=== PATIENT | male | born 1970 | race Two or more races ===

== ENCOUNTER 2018-11-08 13:58 | Emergency (ER) | payer SELFPAY ==
[~2018-11-08] VITALS: Ht 172.7 cm; Wt 90.7 kg
[2018-11-08 14:30] VITALS: BP 128/79
--- NOTE | 2018-11-08 15:33 | PHYS DOC ---
Past Medical History Past Medical History: No Pertinent History Past Surgical History: No Surgical History Alcohol Use: None Drug Use: None Adult General Chief Complaint Chief Complaint: GENERALIZED BODY ACHES HPI HPI Patient is a 48 year old male who presents with the last couple weeks she's had a headache, runny nose, cough and then yesterday began having lower abdominal cramping with diarrhea. He states he did try to take Imodium, ibuprofen and TheraFlu. He is afebrile. He states he was having cold and hot chills. Denies dysuria. Review of Systems Review of Systems Constitutional: Denies fever or chills [] Eyes: Denies change in visual acuity, redness, or eye pain [] HENT: Denies nasal congestion or sore throat [] Respiratory: Denies cough or shortness of breath [] Cardiovascular: No additional information not addressed in HPI [] GI: Denies abdominal pain, nausea, vomiting, bloody stools or diarrhea [] : Denies dysuria or hematuria [] Musculoskeletal: Denies back pain or joint pain [] Integument: Denies rash or skin lesions [] Neurologic: Denies headache, focal weakness or sensory changes [] Endocrine: Denies polyuria or polydipsia [] All other systems were reviewed and found to be within normal limits, except as documented in this note. Current Medications Current Medications Current Medications Medications (Trade) Dose Ordered Sig/Tim Start Time Stop Time Status Last Admin Dose Admin Dicyclomine HCl (Bentyl) 10 mg 1X ONCE 11/08/18 15:45 11/08/18 15:46 11/08/18 15:34 10 MG Allergies Allergies Allergies Coded Allergies Type Severity Reaction Last Updated Verified No Known Drug Allergies 11/08/18 No Physical Exam Physical Exam Constitutional: Well developed, well nourished, no acute distress, non-toxic appearance. [] HENT: Normocephalic, atraumatic, bilateral external ears normal, oropharynx moist, no oral exudates, nose normal. [] Eyes: PERRLA, EOMI, conjunctiva normal, no discharge. [] Neck: Normal range of motion, no tenderness, supple, no stridor. [] Cardiovascular:Heart rate regular rhythm, no murmur [] Lungs & Thorax: Bilateral breath sounds clear to auscultation [] Abdomen: Bowel sounds normal, soft, no tenderness, no masses, no pulsatile masses. [] Skin: Warm, dry, no erythema, no rash. [] Back: No tenderness, no CVA tenderness. [] Extremities: No tenderness, no cyanosis, no clubbing, ROM intact, no edema. [] Neurologic: Alert and oriented X 3, normal motor function, normal sensory function, no focal deficits noted. [] Psychologic: Affect normal, judgement normal, mood normal. [] Current Patient Data Vital Signs Vital Signs Date Time Temp Pulse Resp B/P (MAP) Pulse Ox O2 Delivery O2 Flow Rate FiO2 11/08/18 14:30 98.1 103 20 128/79 (95) 98 Room Air 98.1 Lab Values Laboratory Tests Test 11/08/18 14:56 Influenza Type A Antigen Negative (NEGATIVE) Influenza Type B Antigen Negative (NEGATIVE) EKG EKG [] Radiology/Procedures Radiology/Procedures [] Course & Med Decision Making Course & Med Decision Making Patient is a 48 year old male who presents with the last couple weeks he's had a headache, runny nose, cough and then yesterday began having lower abdominal cramping with diarrhea. He states he did try to take Imodium, ibuprofen and TheraFlu. He is afebrile. He states he was having cold and hot chills. Denies dysuria. Alert and oriented. Skin pink warm and dry. Speaks in full clear sentences. Mucus membranes are moist. Abdomen is soft and nontender. Lungs are clear to auscultation lobes. Heart regular without murmur. Afebrile. Throat is red but there are no exudates. Bilateral ear. Tympanic are pearly white. Patient is given a shot of Bentyl in the ED. Patient is told to continue pushing fluids and taking [id number] medications. Patient likely has a viral gastritis. Patient denies dizziness, shortness of air, chest pain, nausea or vomiting. Dragon Disclaimer Dragon Disclaimer This electronic medical record was generated, in whole or in part, using a voice recognition dictation system. Departure Departure Impression: Primary Impression: Viral gastritis Additional Impressions: Diarrhea Upper respiratory infection Disposition: HOME, SELF-CARE Condition: STABLE Referrals: NO PCP (PCP) Patient Instructions: Diarrhea, Gastritis, Adult Additional Instructions: Follow-up with her primary care sooner as possible. Continue taking over-the- counter medications. Drink plenty of fluids. Scripts Azithromycin (AZITHROMYCIN TABLET) 250 Mg Tablet 1 PKG PO UD, #6 TAB Prov: TYSHAWN POOL APRN 11/08/18 Problem Qualifiers Additional Impressions: Diarrhea Diarrhea type: unspecified type Qualified Codes: R19.7 - Diarrhea, unspecified Upper respiratory infection URI type: unspecified URI Qualified Codes: J06.9 - Acute upper respiratory infection, unspecified TYSHAWN POOL APRN Nov 08, 2018 15:33
[2018-11-08 15:36] LABS: INFLUENZA A PATIENT NEGATIVE (NEGATIVE); INFLUENZA B PATIENT NEGATIVE (NEGATIVE)
[2018-11-08] MEDS ORDERED: DICYCLOMINE 20 MG/2 ML AMPUL. IM ONE (15:45)
[2018-11-08] MEDS ORDERED: AZIT250T6 PO (15:46)
== END 2018-11-08 15:55 | disposition home or self-care (01) ==
LOC: ER 13:58
DX: A08.4 Viral intestinal infection, unspecified (principal); J06.9 Acute upper respiratory infection, unspecified; R19.7 Diarrhea, unspecified
CPT/HCPCS: 87804; 96372; 99283; J0500

== ENCOUNTER 2019-08-08 20:52 | Emergency (ER) | payer SELFPAY ==
[~2019-08-08] VITALS: Ht 170.2 cm; Wt 90.7 kg
[~2019-08-08 20:52] MED LIST: AZIT250T6 PO
[2019-08-08 21:05] VITALS: BP 149/90
--- NOTE | 2019-08-08 21:27 | PHYS DOC ---
Past Medical History Past Medical History: No Pertinent History Past Surgical History: No Surgical History Alcohol Use: None Drug Use: None Adult General Chief Complaint Chief Complaint: PUNCTURE WOUND [facility] HPI Patient is a 48 year old right handed male who presents with complaining of injury to right hand. Patient states he was hit with a piece of wood that had an old nail and had a puncture wound to dorsal and proximal part of his hand both 5 hours ago with increasing pain and edema. Patient rated his pain 10 over 10. Patient denies fever and chills, focal neuro deficit, other injuries. Last tetanus immunization is unknown. Review of Systems Review of Systems Constitutional: Denies fever or chills [] Eyes: Denies change in visual acuity, redness, or eye pain [] HENT: Denies nasal congestion or sore throat [] Respiratory: Denies cough or shortness of breath [] Cardiovascular: No additional information not addressed in HPI [] GI: Denies abdominal pain, nausea, vomiting, bloody stools or diarrhea [] : Denies dysuria or hematuria [] Musculoskeletal: Denies back pain, reports joint pain [] Integument: Denies rash or skin lesions [] Neurologic: Denies headache, focal weakness or sensory changes [] Endocrine: Denies polyuria or polydipsia [] All other systems were reviewed and found to be within normal limits, except as documented in this note. Current Medications Current Medications Current Medications Medications (Trade) Dose Ordered Sig/[facility] Start Time Stop Time Status Last Admin Dose Admin Acetaminophen/ Hydrocodone Bitart (Lortab 5/325) 1 tab 1X ONCE 08/08/19 22:00 08/08/19 22:01 DC 08/08/19 21:58 1 TAB Ciprofloxacin (Cipro) 250 mg 1X ONCE 08/08/19 22:00 08/08/19 22:01 DC 08/08/19 21:56 250 MG Diphtheria/ Tetanus/Acell Pertussis (Boostrix) 0.5 ml ONCE ONCE 08/08/19 22:00 08/08/19 22:01 DC 08/08/19 22:09 0.5 ML Allergies Allergies Allergies Coded Allergies Type Severity Reaction Last Updated Verified No Known Drug Allergies 11/08/18 No Physical Exam Physical Exam Constitutional: Well developed, well nourished, mild distress, non-toxic appearance. [] HENT: Normocephalic, atraumatic. Eyes: PERRLA, EOMI, conjunctiva normal, no discharge. [] Neck: Normal range of motion, no tenderness, supple, no stridor. [] Cardiovascular:Heart rate regular rhythm, no murmur [] Lungs & Thorax: Bilateral breath sounds clear to auscultation [] Extremities: Right hand with a puncture wound in proximal of fourth metacarpal with moderate edema and tenderness without sign of infection, painful range of motion. Neurologic: Alert and oriented X 3, no focal deficits noted. [] Psychologic: Affect anxious, judgement normal, mood normal. [] Current Patient Data Vital Signs Vital Signs Date Time Temp Pulse Resp B/P (MAP) Pulse Ox O2 Delivery O2 Flow Rate FiO2 08/08/19 21:58 20 98 Room Air 08/08/19 21:05 98.4 92 149/90 (109) 98.4 EKG EKG [] Radiology/Procedures Radiology/Procedures [][facility] [address] [place] [address] IMAGING REPORT Signed PATIENT: VILMA ESCALANTE ACCOUNT: [id number] : 1970 LOCATION: ER AGE: 48 SEX: M EXAM STATUS: REG ER ORD. PHYSICIAN: RUBI HANNA MD REASON: puncture wound with a nail PROCEDURE: HAND RIGHT 3V Indication:Puncture wound with nail. TECHNIQUE: 3 views of right hand COMPARISON: None FINDINGS/ impression: No acute fracture or dislocation. No radiopaque foreign body. Electronically signed by: Black Conley DO (08/08/2019 9:40 PM) [facility] DICTATED and SIGNED BY: BLACK CONLEY DO DATE: 08/08/192139 Course & Med Decision Making Course & Med Decision Making Pertinent Imaging studies reviewed. (See chart for details) I've spoken with the patient and/or caregivers. I've explained the patient's condition, diagnosis and treatment plan based on information available to me at this time. I've answered the patient's and/or caregivers questions and addressed any concerns. The patient and/or caregivers have a good understanding the patient's diagnosis, condition and treatment plan as can be expected at this point. Vital signs have been stabilized. The patient's condition is stable for discharge from the emergency department. The patient will pursue further outpatient evaluation with her primary care provider or other designated consulting physician as outlined in the discharge instructions. Patient and/or caregivers are agreeable to this plan of care and follow-up instructions have been explained in detail. The patient and/or caregivers have received these instructions in written format and expressed understanding of these discharge instructions. The patient and her caregivers are aware that if any significant change in condition or worsening of symptoms should prompt him to immediately return to this of the closest emergency de partment. If an emergent department is not readily available I would encourage him to call 911. Dragon Disclaimer Dragon Disclaimer This electronic medical record was generated, in whole or in part, using a voice recognition dictation system. Departure Departure Impression: Primary Impression: Puncture wound of right hand Additional Impression: Contusion of hand Disposition: HOME, SELF-CARE (at 2256) Condition: IMPROVED Referrals: NO PCP (PCP) Patient Instructions: Hand Contusion, Puncture Wound Additional Instructions: Apply ice on your hand Follow-up with your primary care physician in 3-5 days Return to ER if not getting better Scripts Hydrocodone/Apap 5-325 (NORCO 5-325 TABLET) 1 Each Tablet 1 TAB PO PRN Q6HRS PRN for PAIN, #10 TAB 0 Refills Prov: RUBI HANNA MD 08/08/19 Ciprofloxacin Hcl (CIPRO) 250 Mg Tablet 1 TAB PO BID for infection, #14 TAB Prov: RUBI HANNA MD 08/08/19 Problem Qualifiers Primary Impression: Puncture wound of right hand Encounter type: initial encounter Foreign body presence: without foreign body Qualified Codes: S61.431A - Puncture wound without foreign body of right hand, initial encounter Additional Impression: Contusion of hand Encounter type: subsequent encounter Laterality: right Qualified Codes: S60.221D - Contusion of right hand, subsequent encounter RUBI HANNA MD Aug 08, 2019 21:27
--- NOTE | 2019-08-08 21:43 | RAD ---
Indication:Puncture wound with nail. TECHNIQUE: 3 views of right hand COMPARISON: None FINDINGS/ impression: No acute fracture or dislocation. No radiopaque foreign body. Electronically signed by: Black Lawson DO (08/08/2019 9:40 PM) [facility]
[2019-08-08] MEDS ORDERED: CIPROFLOXACIN HCL 250 MG TABLET. PO ONE (22:00)
[2019-08-08] MEDS ORDERED: HYDROcodone/APAP 5/325MG 1 TAB TABLET PO ONE (22:00)
[2019-08-08] MEDS ORDERED: DIPHTH,PERTUSS(ACELL),TET TOX 0.5 ML DISP.SYRIN. VAX IM ONE (22:00)
[2019-08-08] MEDS ORDERED: HYDR-3164 PO (22:59)
[2019-08-08] MEDS ORDERED: CIPR250T30 PO (22:59)
== END 2019-08-08 23:10 | disposition home or self-care (01) ==
LOC: ER 20:52
DX: S60.221A Contusion of right hand, initial encounter (principal); W22.8XXA Striking against or struck by other objects, initial encounter; Y93.89 Activity, other specified; Y92.89 Other specified places as the place of occurrence of the external cause; Y99.8 Other external cause status
CPT/HCPCS: 73130; 90471; 90715; 99284

== ENCOUNTER 2019-08-10 06:45 | Inpatient (IN) | payer SELFPAY ==
[~2019-08-10] VITALS: Ht 170.2 cm; Wt 90.0 kg
[2019-08-10] VITALS (9 sets, daily range): BP systolic 97–124; BP diastolic 56–76
[~2019-08-10 06:45] MED LIST changes: +CIPR250T30 PO; +HYDR-3164 PO
[2019-08-10] MEDS ORDERED: VANCOMYCIN 1GM IVPB FOR OMNI 250 ML IV ONE ×2 (07:15→09:00)
--- NOTE | 2019-08-10 07:24 | PHYS DOC ---
Past Medical History Past Medical History: No Pertinent History Past Surgical History: No Surgical History Alcohol Use: None Drug Use: None Adult General Chief Complaint Chief Complaint: HAND PROBLEM HPI HPI Jordan is a 48-year-old male who presents with complaint of right hand pain and swelling after an nail pierced the dorsal aspect of his hand. He states that it had been bleeding quite a bit with the initial injury and he placed a dressing over it and wrapped it. He states that he then came here and was seen by a provider and was prescribed antibiotics and pain medication. He states that despite taking the antibiotics, swelling and pain have worsened as well as redness and warmth to the area. Patient rates the pain as moderate and states that pain is worsened with flexion of his fingers. He states that pain is primarily in the dorsal aspect of his hand.[] Review of Systems Review of Systems Constitutional: Denies fever or chills [] Respiratory: Denies cough or shortness of breath [] Cardiovascular: No additional information not addressed in HPI [] Musculoskeletal: Positive right hand pain [] Integument: Denies rash or skin lesions [] All other systems were reviewed and found to be within normal limits, except as documented in this note. Current Medications Current Medications Current Medications Medications (Trade) Dose Ordered Sig/Tim Start Time Stop Time Status Last Admin Dose Admin Acetaminophen (Tylenol) 500 mg PRN Q6HRS PRN 08/10/19 08:45 Acetaminophen/ Hydrocodone Bitart (Lortab 5/325) 1 tab PRN Q6HRS PRN 08/10/19 08:45 Clonidine HCl (Catapres) 0.1 mg PRN Q1HR PRN 08/10/19 08:45 Fentanyl Citrate (Fentanyl 2ml Vial) 25 mcg PRN Q15MIN PRN 08/10/19 07:15 08/11/19 07:14 08/10/19 08:28 25 MCG Morphine Sulfate (Morphine Sulfate) 2 mg PRN Q2HR PRN 08/10/19 08:45 Ondansetron HCl (Zofran) 4 mg PRN Q6HRS PRN 08/10/19 08:45 Vancomycin HCl (Vanco Per Pharmacy) 1 each PRN DAILY PRN 08/10/19 08:45 UNV Allergies Allergies Allergies Coded Allergies Type Severity Reaction Last Updated Verified No Known Drug Allergies 11/08/18 No Physical Exam Physical Exam Constitutional: Well developed, well nourished, no acute distress, non-toxic appearance. [] HENT: Normocephalic, atraumatic, bilateral external ears normal, oropharynx moist, no oral exudates, nose normal. [] Eyes: PERRLA, EOMI, conjunctiva normal, no discharge. [] Neck: Normal range of motion, no tenderness, supple, no stridor. [] Cardiovascular: Regular rate and rhythm[] Lungs & Thorax: Bilateral breath sounds clear to auscultation [] Abdomen: Bowel sounds normal, soft. [] Skin: Warm, dry, no erythema, no rash. [] Extremities: Examination of right hand demonstrates moderate soft tissue swelling, redness and warmth, primarily to dorsal aspect of the hand with diffuse tenderness to palpation. Patient reports pain with flexion of fingers. [] Neurologic: Alert and oriented X 3, no focal deficits noted. [] Current Patient Data Vital Signs Vital Signs Date Time Temp Pulse Resp B/P (MAP) Pulse Ox O2 Delivery O2 Flow Rate FiO2 08/10/19 08:28 16 08/10/19 07:05 97.9 83 153/98 (116) 98 Room Air 97.9 Lab Values Laboratory Tests Test 08/10/19 07:37 White Blood Count 9.8 x10^3/uL (4.0-11.0) Red Blood Count 4.73 x10^6/uL (4.30-5.70) Hemoglobin 14.4 g/dL (13.0-17.5) Hematocrit 41.5 % (39.0-53.0) Mean Corpuscular Volume 88 fL (79-100) Mean Corpuscular Hemoglobin 31 pg (25-35) Mean Corpuscular Hemoglobin Concent 35 g/dL (31-37) Red Cell Distribution Width 13.5 % (11.5-14.5) Platelet Count 231 x10^3/uL (140-400) Neutrophils (%) (Auto) 68 % (31-73) Lymphocytes (%) (Auto) 21 % (24-48) L Monocytes (%) (Auto) 10 % (0-9) H Eosinophils (%) (Auto) 0 % (0-3) Basophils (%) (Auto) 1 % (0-3) Neutrophils # (Auto) 6.7 x10^3/uL (1.8-7.7) Lymphocytes # (Auto) 2.1 x10^3/uL (1.0-4.8) Monocytes # (Auto) 1.0 x10^3/uL (0.0-1.1) Eosinophils # (Auto) 0.0 x10^3/uL (0.0-0.7) Basophils # (Auto) 0.0 x10^3/uL (0.0-0.2) Sodium Level 139 mmol/L (136-145) Potassium Level 4.0 mmol/L (3.5-5.1) Chloride Level 105 mmol/L (98-107) Carbon Dioxide Level 31 mmol/L (21-32) Anion Gap 3 (6-14) L Blood Urea Nitrogen 15 mg/dL (8-26) Creatinine 1.1 mg/dL (0.7-1.3) Estimated GFR (Cockcroft-Gault) 72.1 BUN/Creatinine Ratio 14 (6-20) Glucose Level 104 mg/dL (70-99) H Calcium Level 9.6 mg/dL (8.5-10.1) Total Bilirubin 0.7 mg/dL (0.2-1.0) Aspartate Amino Transferase (AST) 27 U/L (15-37) Alanine Aminotransferase (ALT) 53 U/L (16-63) Alkaline Phosphatase 51 U/L (46-116) Total Protein 8.1 g/dL (6.4-8.2) Albumin 3.9 g/dL (3.4-5.0) Albumin/Globulin Ratio 0.9 (1.0-1.7) L Laboratory Tests 08/10/19 07:37 Laboratory Tests 08/10/19 07:37 EKG EKG [] Radiology/Procedures Radiology/Procedures [] Course & Med Decision Making Course & Med Decision Making Pertinent Labs and Imaging studies reviewed. (See chart for details) [] Dragon Disclaimer Dragon Disclaimer This electronic medical record was generated, in whole or in part, using a voice recognition dictation system. Departure Departure Impression: Primary Impression: Cellulitis of right hand Disposition: ADMITTED INPATIENT Admitting Physician: BERNARD (Dr. Chambers) Condition: GOOD Referrals: NO PCP (PCP) LAWRENCE ESQUIVEL Jr. DO Aug 10, 2019 07:24
[2019-08-10 07:50] LABS: BASO % 1 % (0-3); EOS % 0 % (0-3); HEMATOCRIT 41.5 % (39.0-53.0); HEMOGLOBIN 14.4 g/dL (13.0-17.5); LYMPH # 2.1 x10^3/uL (1.0-4.8); LYMPH % 21 % (24-48); MEAN CORPUSCULAR HEMOGLOBIN 31 pg (25-35); MEAN CORPUSCULAR HGB CONC 35 g/dL (31-37); MEAN CORPUSCULAR VOLUME 88 fL (79-100); MONO % 10 % (0-9); NEUT # 6.7 x10^3/uL (1.8-7.7); NEUT % 68 % (31-73); PLATELET COUNT 231 x10^3/uL (140-400); RED BLOOD COUNT 4.73 x10^6/uL (4.30-5.70); RED CELL DISTRIBUTION WIDTH 13.5 % (11.5-14.5); WHITE BLOOD COUNT 9.8 x10^3/uL (4.0-11.0)
[2019-08-10] MEDS: fentaNYL PF VIAL 100 MCG/2 ML VIAL IV PRN ×3 (07:56→10:15)
[2019-08-10 08:17] LABS: CALCIUM 9.6 mg/dL (8.5-10.1); CREATININE 1.1 mg/dL (0.7-1.3); GFR 72.1
[2019-08-10 08:23] LABS: ALBUMIN 3.9 g/dL (3.4-5.0); ALBUMIN/GLOBULIN RATIO 0.9 (1.0-1.7); TOTAL BILIRUBIN 0.7 mg/dL (0.2-1.0); TOTAL PROTEIN 8.1 g/dL (6.4-8.2)
[2019-08-10] MEDS ORDERED: MORPHINE SULFATE 2 MG/ML VIAL. IV PRN ×2 (08:45→10:45)
[2019-08-10] MEDS ORDERED: ONDANSETRON PF 4 MG/2 ML VIAL. IVP PRN (08:45)
[2019-08-10] MEDS ORDERED: ACETAMINOPHEN 500 MG TABLET PO PRN (08:45)
[2019-08-10] MEDS ORDERED: cloNIDine HCL 0.1 MG TABLET PO PRN (08:45)
[2019-08-10] MEDS ORDERED: MORPHINE SULFATE 4 MG/ML VIAL. IV PRN (09:00)
[2019-08-10] MEDS ORDERED: ONDANSETRON PF 4 MG/2 ML VIAL. IV PRN (09:00)
[2019-08-10] MEDS ORDERED: ACETAMINOPHEN 325 MG TABLET. PO PRN (09:00)
--- NOTE | 2019-08-10 09:39 | PDOC1 ---
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 Admitted for failed OP abx, NON DM, does not take any home meds pillow filler. NOn smoker, nonm drinker, no prev sxs. Got vanc at ER Past Medical History Cardiovascular: No pertinent hx Pulmonary: No pertinent hx GI: No pertinent hx Heme/Onc: No pertinent hx Hepatobiliary: No pertinent hx Psych: No pertinent hx Rheumatologic: No pertinent hx Infectious disease: No pertinent hx ENT: No pertinent hx Endocrine: No pertinent hx Dermatology: No pertinent hx Past Surgical History Past Surgical History: No pertinent history Family History Family History: No Significant Social History Smoke: No ALCOHOL: none Drugs: None Current Problem List Problem List Problems Medical Problems: (1) Cellulitis of right hand Status: Acute Current Medications Current Medications Current Medications Fentanyl Citrate (Fentanyl 2ml Vial) 25 mcg PRN Q15MIN PRN IV PAIN GREATER THAN 3/10 Last administered on 08/10/19at 08:28; Start 08/10/19 at 07:15; Stop 08/11/19 at 07:14 Vancomycin HCl 250 ml @ 250 mls/hr 1X ONCE IV Last administered on 08/10/19at 08:00; Start 08/10/19 at 07:15; Stop 08/10/19 at 08:14; Status DC Acetaminophen/ Hydrocodone Bitart (Lortab 5/325) 1 tab PRN Q6HRS PRN PO PAIN; Start 08/10/19 at 08:45 Morphine Sulfate (Morphine Sulfate) 2 mg PRN Q2HR PRN IV PAIN; Start 08/10/19 at 08:45 Acetaminophen (Tylenol) 500 mg PRN Q6HRS PRN PO MILD PAIN / TEMP; Start 08/10/19 at 08:45 Ondansetron HCl (Zofran) 4 mg PRN Q6HRS PRN IVP NAUSEA/VOMITING; Start 08/10/19 at 08:45 Vancomycin HCl (Vanco Per Pharmacy) 1 each PRN DAILY PRN MC SEE COMMENTS; Start 08/10/19 at 08:45; Status UNV Clonidine HCl (Catapres) 0.1 mg PRN Q1HR PRN PO HYPERTENSION; Start 08/10/19 at 08:45 Vancomycin HCl 250 ml @ 250 mls/hr 1X ONCE IV ; Start 08/10/19 at 09:00; Stop 08/10/19 at 09:59 Ondansetron HCl (Zofran) 4 mg PRN Q8HRS PRN IV NAUSEA/VOMITING; Start 08/10/19 at 09:00; Stop 08/11/19 at 08:59 Morphine Sulfate (Morphine Sulfate) 4 mg PRN Q2HR PRN IV PAIN; Start 08/10/19 at 09:00; Stop 08/11/19 at 08:59 Acetaminophen (Tylenol) 650 mg PRN Q4HRS PRN PO FEVER; Start 08/10/19 at 09:00; Stop 08/11/19 at 08:59 Active Scripts Active [place] 5-325 Tablet (Acetaminophen/Hydrocodone Bitart) 1 Each Tablet 1 Tab PO PRN Q6HRS PRN Cipro (Ciprofloxacin Hcl) 250 Mg Tablet 1 Tab PO BID Azithromycin Tablet (Azithromycin) 250 Mg Tablet 1 Pkg PO UD Allergies Allergies: Coded Allergies: No Known Drug Allergies (Unverified , 11/08/18) ROS Review of System as per HPI, the rest 14 pt neg Physical Exam General: Alert, Oriented X3, Cooperative, No acute distress HEENT: Atraumatic, PERRLA Lungs: Clear to auscultation, Normal air movement Heart: S1S2, RRR, no thrills, no rubs Cardiovascular: S1, S2 Breasts: Normal, Rt breast nml w/o mass, Lt breast nml w/o mass, Nipples normal Abdomen: Normal bowel sounds, Soft, No tenderness, No hepatosplenomegaly, No masses Male Genitals Exam: normal genitalia, normal prostate PELVIC: Nml ext genitalia Extremities: Other (RT hand markedly swoelln, cant nake a fist, tenderness and warm up to rt forarm near elbow, punctired dorsal site hand wound visible, no bleeding today) Neuro: Normal gait, Normal speech, Strength at 5/5 X4 ext, Normal tone, Sensation intact, Cranial nerves 3-12 NL, Reflexes 2+ Psych/Mental Status: Mental status NL, Mood NL Vitals Vitals Vital Signs Date Time Temp Pulse Resp B/P (MAP) Pulse Ox O2 Delivery O2 Flow Rate FiO2 08/10/19 08:28 16 08/10/19 07:05 97.9 83 153/98 (116) 98 Room Air 97.9 Labs Labs Laboratory Tests Test 08/10/19 07:37 White Blood Count 9.8 x10^3/uL (4.0-11.0) Red Blood Count 4.73 x10^6/uL (4.30-5.70) Hemoglobin 14.4 g/dL (13.0-17.5) Hematocrit 41.5 % (39.0-53.0) Mean Corpuscular Volume 88 fL (79-100) Mean Corpuscular Hemoglobin 31 pg (25-35) Mean Corpuscular Hemoglobin Concent 35 g/dL (31-37) Red Cell Distribution Width 13.5 % (11.5-14.5) Platelet Count 231 x10^3/uL (140-400) Neutrophils (%) (Auto) 68 % (31-73) Lymphocytes (%) (Auto) 21 % (24-48) Monocytes (%) (Auto) 10 % (0-9) Eosinophils (%) (Auto) 0 % (0-3) Basophils (%) (Auto) 1 % (0-3) Neutrophils # (Auto) 6.7 x10^3/uL (1.8-7.7) Lymphocytes # (Auto) 2.1 x10^3/uL (1.0-4.8) Monocytes # (Auto) 1.0 x10^3/uL (0.0-1.1) Eosinophils # (Auto) 0.0 x10^3/uL (0.0-0.7) Basophils # (Auto) 0.0 x10^3/uL (0.0-0.2) Sodium Level 139 mmol/L (136-145) Potassium Level 4.0 mmol/L (3.5-5.1) Chloride Level 105 mmol/L (98-107) Carbon Dioxide Level 31 mmol/L (21-32) Anion Gap 3 (6-14) Blood Urea Nitrogen 15 mg/dL (8-26) Creatinine 1.1 mg/dL (0.7-1.3) Estimated GFR (Cockcroft-Gault) 72.1 BUN/Creatinine Ratio 14 (6-20) Glucose Level 104 mg/dL (70-99) Calcium Level 9.6 mg/dL (8.5-10.1) Total Bilirubin 0.7 mg/dL (0.2-1.0) Aspartate Amino Transf (AST/SGOT) 27 U/L (15-37) Alanine Aminotransferase (ALT/SGPT) 53 U/L (16-63) Alkaline Phosphatase 51 U/L (46-116) Total Protein 8.1 g/dL (6.4-8.2) Albumin 3.9 g/dL (3.4-5.0) Albumin/Globulin Ratio 0.9 (1.0-1.7) Laboratory Tests Test 08/10/19 07:37 White Blood Count 9.8 x10^3/uL (4.0-11.0) Red Blood Count 4.73 x10^6/uL (4.30-5.70) Hemoglobin 14.4 g/dL (13.0-17.5) Hematocrit 41.5 % (39.0-53.0) Mean Corpuscular Volume 88 fL (79-100) Mean Corpuscular Hemoglobin 31 pg (25-35) Mean Corpuscular Hemoglobin Concent 35 g/dL (31-37) Red Cell Distribution Width 13.5 % (11.5-14.5) Platelet Count 231 x10^3/uL (140-400) Neutrophils (%) (Auto) 68 % (31-73) Lymphocytes (%) (Auto) 21 % (24-48) Monocytes (%) (Auto) 10 % (0-9) Eosinophils (%) (Auto) 0 % (0-3) Basophils (%) (Auto) 1 % (0-3) Neutrophils # (Auto) 6.7 x10^3/uL (1.8-7.7) Lymphocytes # (Auto) 2.1 x10^3/uL (1.0-4.8) Monocytes # (Auto) 1.0 x10^3/uL (0.0-1.1) Eosinophils # (Auto) 0.0 x10^3/uL (0.0-0.7) Basophils # (Auto) 0.0 x10^3/uL (0.0-0.2) Sodium Level 139 mmol/L (136-145) Potassium Level 4.0 mmol/L (3.5-5.1) Chloride Level 105 mmol/L (98-107) Carbon Dioxide Level 31 mmol/L (21-32) Anion Gap 3 (6-14) Blood Urea Nitrogen 15 mg/dL (8-26) Creatinine 1.1 mg/dL (0.7-1.3) Estimated GFR (Cockcroft-Gault) 72.1 BUN/Creatinine Ratio 14 (6-20) Glucose Level 104 mg/dL (70-99) Calcium Level 9.6 mg/dL (8.5-10.1) Total Bilirubin 0.7 mg/dL (0.2-1.0) Aspartate Amino Transf (AST/SGOT) 27 U/L (15-37) Alanine Aminotransferase (ALT/SGPT) 53 U/L (16-63) Alkaline Phosphatase 51 U/L (46-116) Total Protein 8.1 g/dL (6.4-8.2) Albumin 3.9 g/dL (3.4-5.0) Albumin/Globulin Ratio 0.9 (1.0-1.7) VTE Prophylaxis Ordered VTE Prophylaxis Devices: Yes VTE Pharmacological Prophylaxi: Yes Assessment/Plan Assessment/Plan PUNCTURED wound by nail - 08/08 - got TT, failed oP cipro NON DM Cellulitis, MARKED RT arm up to RT forearm, tight - r/o compartment PLAN: NPO till ortho CHeck CT arm add esr NO home meds tor reconcile I cont vanc per pharmacy Consult ID FULL CODE Seen at ER dw and pt and GIAN Pereira MD Aug 10, 2019 09:39
[2019-08-10] MEDS ORDERED: IV NORMAL SALINE 1000ML BAG 1,000 ML IV ONE (09:45)
[2019-08-10] MEDS ORDERED: LIDOCAINE 2% PF 5 ML VIAL. ONE (10:34)
[2019-08-10] MEDS ORDERED: fentaNYL PF VIAL 100 MCG/2 ML VIAL ONE (10:34)
[2019-08-10] MEDS ORDERED: PROPOFOL 20 ML IV ONE (10:34)
[2019-08-10] MEDS ORDERED: IV RINGERS,LACTATED 1000ML 1,000 ML IV SCH (10:35)
[2019-08-10] MEDS ORDERED: LIDOCAINE 1% PF 2 ML VIAL. ID PRN (10:45)
[2019-08-10] MEDS ORDERED: PROCHLORPERAZINE 10 MG/2 ML VIAL. IV PRN (10:45)
[2019-08-10] MEDS ORDERED: fentaNYL PF VIAL 100 MCG/2 ML VIAL IV PRN ×2 (10:45)
[2019-08-10] MEDS ORDERED: HYDROmorphone 2 MG/ML VIAL IV PRN (10:45)
--- NOTE | 2019-08-10 11:14 | PDOC ---
Infectious Disease Note Vital Sign Vital Signs Vital Signs Date Time Temp Pulse Resp B/P (MAP) Pulse Ox O2 Delivery O2 Flow Rate FiO2 08/10/19 10:15 16 08/10/19 10:10 85 138/87 (104) 98 Room Air 08/10/19 07:05 97.9 97.9 Labs Lab Laboratory Tests Test 08/10/19 07:37 White Blood Count 9.8 x10^3/uL (4.0-11.0) Red Blood Count 4.73 x10^6/uL (4.30-5.70) Hemoglobin 14.4 g/dL (13.0-17.5) Hematocrit 41.5 % (39.0-53.0) Mean Corpuscular Volume 88 fL (79-100) Mean Corpuscular Hemoglobin 31 pg (25-35) Mean Corpuscular Hemoglobin Concent 35 g/dL (31-37) Red Cell Distribution Width 13.5 % (11.5-14.5) Platelet Count 231 x10^3/uL (140-400) Neutrophils (%) (Auto) 68 % (31-73) Lymphocytes (%) (Auto) 21 % (24-48) Monocytes (%) (Auto) 10 % (0-9) Eosinophils (%) (Auto) 0 % (0-3) Basophils (%) (Auto) 1 % (0-3) Neutrophils # (Auto) 6.7 x10^3/uL (1.8-7.7) Lymphocytes # (Auto) 2.1 x10^3/uL (1.0-4.8) Monocytes # (Auto) 1.0 x10^3/uL (0.0-1.1) Eosinophils # (Auto) 0.0 x10^3/uL (0.0-0.7) Basophils # (Auto) 0.0 x10^3/uL (0.0-0.2) Erythrocyte Sedimentation Rate 23 (0-15) Sodium Level 139 mmol/L (136-145) Potassium Level 4.0 mmol/L (3.5-5.1) Chloride Level 105 mmol/L (98-107) Carbon Dioxide Level 31 mmol/L (21-32) Anion Gap 3 (6-14) Blood Urea Nitrogen 15 mg/dL (8-26) Creatinine 1.1 mg/dL (0.7-1.3) Estimated GFR (Cockcroft-Gault) 72.1 BUN/Creatinine Ratio 14 (6-20) Glucose Level 104 mg/dL (70-99) Calcium Level 9.6 mg/dL (8.5-10.1) Total Bilirubin 0.7 mg/dL (0.2-1.0) Aspartate Amino Transf (AST/SGOT) 27 U/L (15-37) Alanine Aminotransferase (ALT/SGPT) 53 U/L (16-63) Alkaline Phosphatase 51 U/L (46-116) Total Protein 8.1 g/dL (6.4-8.2) Albumin 3.9 g/dL (3.4-5.0) Albumin/Globulin Ratio 0.9 (1.0-1.7) Objective Assessment Cellulitis of right hand. -Failed OP cipro Puncture wound (nail) right hand. Prediabetes HLD Plan Plan of Care Tetanus shot 08/08 Continue vancomycin and add Zosyn Monitor renal function closely Seen by ortho w/ plans for surgery f/u cultures D/w D/w nursing Thank you [id number] Patient seen and examined. Chart reviewed in detail. Case discussed with STAGE TECHNICIAN. Agree with above plan. PAULO RICHARD APRN Aug 10, 2019 11:14 GOVIND BARNETT MD Aug 10, 2019 20:34
[2019-08-10] MEDS ORDERED: ONDANSETRON PF 4 MG/2 ML VIAL. ONE (11:37)
[2019-08-10] MEDS ORDERED: SEVOFLURANE 16 TO 30 MINUTES. IH ONE (11:37)
[2019-08-10] MEDS ORDERED: DEXAMETHASONE SOD PHOS 4 MG/ML VIAL ONE (11:37)
[2019-08-10 11:57] LABS: BF CLARITY CLOUDY; BF COLOR RED; BF SOURCE SYNOVIAL; BF WBC COUNT 6175 /cmm (Not Established)
[2019-08-10 11:58] LABS: BF MON % 24 %; BF OTHER % 6 %; BF PMN % 70 %; BF RBC COUNT 36000 /cmm (Not Established)
--- NOTE | 2019-08-10 13:14 | PDOC4 ---
Operative Note Operative Note Date of surgery: 08/10/2019 Preoperative diagnosis: Septic arthritis right wrist joint Postoperative diagnosis: Same Operative procedure: Right wrist arthrotomy irrigation debridement septic wrist joint Surgeon: Tiffany Anesthesia: Gen. Estimated blood loss: 10 mL Complications: None Operative indications: Please see my orthopedic consultation dated today for detail operative indications Operative text: Patient was identified procedure verified patient placed in the supine position on the operating table. After adequate amounts of general anesthesia were administered the right upper extremity was prepped and draped in standard sterile fashion with an upper arm tourniquet which was not inflated. After timeout was performed patient procedure identified and verified and incision was made at the 34 wrist arthroscopic portal site and at the 4-5 portal site wrist joint was entered without difficulty using a blunt Yamile clamp and purulent discharge was noted and suctioned away. A total of 1 L normal saline solution was irrigated throughout the wrist joint from first the medial and then lateral portals and free flow was obtained and clear fluid obtained following the irrigation wrist joint was then drained and incisions closed with 4-0 nylon suture sterile dressings were applied patient was returned recovery room in stable condition having tolerated procedure well BENJI PEPE MD Aug 10, 2019 13:14
[2019-08-10] MEDS: HYDROcodone/APAP 5/325MG 1 TAB TABLET PO PRN (14:02)
[2019-08-10] MEDS: PIPERACILLIN/TAZOBACTAM 3.375 GM in IV NORMAL SALINE 50ML 50 ML IV SCH ×2 (14:02→19:15)
[2019-08-10] MEDS: VANCOMYCIN PER PHARMACY MC PRN (14:29)
--- NOTE | 2019-08-10 14:30 | NUR ---
Pharmacy Vancomycin Dosing Note S:Consulted to monitor and dose vancomycin started 08/10/19. O:VILMA ESCALANTE is a 48 year old M with Cellulitis SEPTIC ARTHRITIS . Height: 5 feet, 7 inches Weight: 90.170764 kg [place] Body Weight: 66.10 Adjusted Body Weight: 75.94 Dosing Weight: Actual Other Antibiotics: ZOSYN LABS: Last BUN: 15 Last Creatinine: 1.1 Creatinine Clearance: 90 mL/min Last WBC: 9.8 Last Procalcitonin: Tmax (past 24 hours): 98.0 Microbiology: I/O: Drug Levels: Last level: on at Last dose given 08/10/19 at 1121 Vancomycin Dosing: Loading Dose: 2000 mg x1 Dosing Weight: Actual Target Trough: 15-20 A: Based on: Body weight and renal function P: 1. After 2gm loading dose, start Vancomycin 1500 mg IV q12h 2. Follow up Trough level on 08/11/19 at 2300 3. Pharmacy will continue to monitor, follow and adjust therapy as needed. STEPHANIE CHASE RPH, 08/10/19 1430
--- NOTE | 2019-08-10 15:32 | CONS ---
DATE OF CONSULTATION: 08/10/2019 REASON FOR CONSULTATION: Right wrist pain and swelling. REQUESTING PHYSICIAN: Dr. Tatum and Dr. Chambers. HISTORY OF PRESENT ILLNESS: The patient is a 48-year-old male who speaks reasonable Italian and complains of right wrist pain and swelling, particularly over the back of his hand. After he had an injury from a nail several days ago that poked into the dorsal aspect of his hand over the roughly over the wrist joint. He said it initially bled quite a bit and he placed a dressing over it and wrapped that, he came to the Emergency Department later apparently was provided a tetanus and some antibiotics and pain medication, but he notes that despite taking antibiotics swelling and pain have worsened and it is more red, warm and very painful, difficult to move his wrist and fully flex his fingers due to the swelling. PAST MEDICAL HISTORY/SURGICAL HISTORY: He denies any past medical history or surgical history. SOCIAL HISTORY: No tobacco, alcohol or drug use. He is accompanied by his family. He has been taking Tylenol for pain. ALLERGIES: He has no known drug allergies. REVIEW OF SYSTEMS: Denies any fever, chills, chest pain or shortness of breath. No additional joint pain aside from the hand and wrist swelling on the right and tightness where he can flex the hand very well. Denies any other skin problems, joint pain, or other constitutional symptoms. No chest pain, shortness of breath, respiratory or urinary tract symptoms. PHYSICAL EXAMINATION: GENERAL: Pleasant, cooperative male. VITAL SIGNS: Temperature 97.9, pulse 83, respirations 16, blood pressure 153/98 and 98% saturation on room air. EXTREMITIES: On examination of the right hand, he has significant swelling over the dorsum of the hand. No specific point tenderness over the extensor mechanism, although his wrist does have an effusion and is very tense. He cannot flex his fingers fully. Flexor profundus superficialis function; however, is intact and he has no tenderness on palpation over the flexor tendon sheaths. LABORATORY DATA: White count is 9.8. IMAGING DATA: X-rays show no bony abnormality. He has normal examination contralateral hand and wrist, bilateral shoulder and elbow as well. IMPRESSION: Right wrist puncture wound and possible septic arthritis, right wrist. TREATMENT PLAN: I went over with him my rationale for aspirating the wrist. His wrist was aspirated for about 3-4 mL of very cloudy appearing blood-tinged fluid. This was sent off for cell count, aerobic and anaerobic cultures and Gram stain. I told him that based on his symptoms. He did not really have an infected wrist joint and I recommend surgical treatment of that because of the rapid damage that can occur with joint involvement. All his questions were answered and he does wish to proceed with surgical evaluation and treatment, which will occur urgently today as he has had nothing to eat or drink since last night. BENJI PEPE MD DR: NISSA/shiv JOB#: [id number] / [id number]
--- NOTE | 2019-08-10 17:52 | CONS ---
DATE OF CONSULTATION: 08/10/2019 REFERRING PHYSICIAN: Sandra Chambers MD REASON FOR CONSULTATION: Severe cellulitis. HISTORY OF PRESENT ILLNESS: This patient is a 48-year-old male who on 08/08 was working at home when a wooden board, with a nail sticking out, fell, puncturing his right hand. He says he wrapped his hand to stop the bleeding. A few hours later, he arrived to the ER with complaints of pain and swelling. X-ray at the time showed no acute fracture, dislocation or radiopaque foreign body. He was given a tetanus shot, prescription for Cipro and released home. Over the following 2 days, he says his hand became increasingly painful, swollen with limited range of motion despite antibiotics. He is now on vancomycin. He was evaluated by Ortho with plans for surgery soon. PAST MEDICAL HISTORY: Hyperlipidemia and prediabetes. PAST SURGICAL HISTORY: Denies previous surgeries. FAMILY HISTORY: Diabetes. SOCIAL HISTORY: He is . 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 He does not smoke. ALLERGIES: No known drug allergies. MEDICATIONS: Vancomycin, clonidine, fentanyl, Lortab, Dilaudid, morphine, ondansetron, prochlorperazine, and Tylenol. Previously on outpatient ciprofloxacin. REVIEW OF SYSTEMS: The patient denies fevers, chills, sweats or body aches. Denies shortness of air, cough or chest discomfort. Denies nausea, vomiting or diarrhea. Denies rash. Other review of systems negative. PHYSICAL EXAMINATION: VITAL SIGNS: Temperature is 97.9, blood pressure 138/87, heart rate 85, respiratory rate 16, and pulse oximetry 98% on room air. BMI is 31. GENERAL: The patient is sitting in a chair, alert and well appearing. HEENT: Pupils are equally round and reactive. Oropharynx pink and moist. NECK: Supple. LUNGS: Clear to auscultation. CARDIAC: S1 and S2. ABDOMEN: Soft and nontender. EXTREMITIES: Unremarkable except right hand and fingers are edematous and warm with limited car blocker. He has a puncture leena dorsal aspect of the wrist area. Radial pulse is strong and capillary reflex brisk. SKIN: Warm to touch. No signs of rash. NEUROLOGIC: Alert, answering questions appropriately. LABORATORY DATA: Today's WBC 9.8, hemoglobin 14.4, and platelets 231,000. Sed rate 23. Creatinine 1.1 and BUN 15. Electrolytes are unremarkable. Glucose 104. Total bilirubin 0.7, AST 27, and ALT 53. X-ray of the hand per HPI. IMPRESSION: 1. Cellulitis of right hand. 2. Puncture wound, right hand, with nail. 3. Prediabetes. 4. Hyperlipidemia. PLAN: The patient already was given a tetanus shot on the . Continue the vancomycin and add Zosyn. Monitor renal function closely. He was seen by Ortho with plans for surgery today. Cultures requested. Discussed with at bedside. Thank you Dr. Chambers for asking us to participate in this patient's care. Should you have further questions or concerns, please call. GOVIND BARNETT MD DR: ALEC/nts JOB#: [id number] / [id number]
[2019-08-10] MEDS: VANCOMYCIN 1.5 GM in IV NORMAL SALINE 500ML BAG 500 ML IV SCH (23:07)
[2019-08-11] MEDS: PIPERACILLIN/TAZOBACTAM 3.375 GM in IV NORMAL SALINE 50ML 50 ML IV SCH ×4 (01:38→17:27)
[2019-08-11 02:53] VITALS: BP 110/66
[2019-08-11 06:08] LABS: BASO % 0 % (0-3); EOS % 0 % (0-3); HEMATOCRIT 36.4 % (39.0-53.0); HEMOGLOBIN 12.5 g/dL (13.0-17.5); LYMPH # 1.1 x10^3/uL (1.0-4.8); LYMPH % 12 % (24-48); MEAN CORPUSCULAR HEMOGLOBIN 30 pg (25-35); MEAN CORPUSCULAR HGB CONC 34 g/dL (31-37); MEAN CORPUSCULAR VOLUME 88 fL (79-100); MONO # 0.8 x10^3/uL (0.0-1.1); MONO % 9 % (0-9); NEUT # 7.1 x10^3/uL (1.8-7.7); NEUT % 78 % (31-73); PLATELET COUNT 218 x10^3/uL (140-400); RED BLOOD COUNT 4.12 x10^6/uL (4.30-5.70); RED CELL DISTRIBUTION WIDTH 13.2 % (11.5-14.5); WHITE BLOOD COUNT 9.1 x10^3/uL (4.0-11.0)
[2019-08-11 06:20] LABS: CALCIUM 8.5 mg/dL (8.5-10.1); GFR 80.4; POTASSIUM 4.3 mmol/L (3.5-5.1)
[2019-08-11 07:00] VITALS: BP 118/67
[2019-08-11 07:15] LABS: PROTHROMBIN TIME PATIENT 13.2 SEC (11.7-14.0)
--- NOTE | 2019-08-11 08:46 | PDOC ---
PROGRESS NOTES Chief Complaint Chief Complaint Right wrist cellulitis and abscess, septic arthritis Obesity Prediabetes HLD Anemia History of Present Illness History of Present Illness Mr Hayward is a 48-year-old male who on 08/08 was working at home when a wooden board, with a nail sticking out, fell, puncturing his right hand. He says he wrapped his hand to stop the bleeding. A few hours later, he arrived to the ER with complaints of pain and swelling. X-ray at the time showed no acute fracture, dislocation or radiopaque foreign body. He was given a tetanus shot, prescription for Cipro and released home. Over the following 2 days, he says his hand became increasingly painful, swollen with limited range of motion despite antibiotics. He is now on vancomycin. Seen by ID and Orthopedic surgery in consultation. now s/p Right wrist arthrotomy irrigation debridement septic wrist joint on 08/10/19. He is tolerating PO pain medications well, still on IV antibiotics. No numbness or tingling in hand, it is slightly swollen. No diarrhea, no SOB or CP. He is asking to discharge soon. Plan: Will d/w ID antibiotic regimen Add bowel regimen for opioid induced constipation Vitals Vitals Vital Signs Date Time Temp Pulse Resp B/P (MAP) Pulse Ox O2 Delivery O2 Flow Rate FiO2 08/11/19 07:00 97.7 63 18 118/67 (84) 96 Room Air 97.7 08/10/19 12:04 10 Physical Exam General: Alert, Oriented X3, Cooperative, No acute distress Heart: Regular rate, Normal S1, Normal S2 Lungs: Clear Abdomen: Normal bowel sounds, Soft, No tenderness, No hepatosplenomegaly, No masses Extremities: Other (RT hand markedly swoelln, cant nake a fist, tenderness and warm up to rt forarm near elbow, punctired dorsal site hand wound visible, no bleeding today) Labs LABS Laboratory Tests Test 08/10/19 10:25 08/11/19 05:30 Body Fluid Source Synovial Body Fluid Volume Body Fluid Color Red Body Fluid Clarity Cloudy Body Fluid Nucleated Cells 6175 /cmm (Not Established) Body Fluid Mononuclear WBCs (%) 24 % Body Fluid Polymorphonuclear Cells 70 % Body Fluid Total RBCs Counted 31857 /cmm (Not Body Fluid Other Cells (%) 6 % White Blood Count 9.1 x10^3/uL (4.0-11.0) Red Blood Count 4.12 x10^6/uL (4.30-5.70) Hemoglobin 12.5 g/dL (13.0-17.5) Hematocrit 36.4 % (39.0-53.0) Mean Corpuscular Volume 88 fL (79-100) Mean Corpuscular Hemoglobin 30 pg (25-35) Mean Corpuscular Hemoglobin Concent 34 g/dL (31-37) Red Cell Distribution Width 13.2 % (11.5-14.5) Platelet Count 218 x10^3/uL (140-400) Neutrophils (%) (Auto) 78 % (31-73) Lymphocytes (%) (Auto) 12 % (24-48) Monocytes (%) (Auto) 9 % (0-9) Eosinophils (%) (Auto) 0 % (0-3) Basophils (%) (Auto) 0 % (0-3) Neutrophils # (Auto) 7.1 x10^3/uL (1.8-7.7) Lymphocytes # (Auto) 1.1 x10^3/uL (1.0-4.8) Monocytes # (Auto) 0.8 x10^3/uL (0.0-1.1) Eosinophils # (Auto) 0.0 x10^3/uL (0.0-0.7) Basophils # (Auto) 0.0 x10^3/uL (0.0-0.2) Prothrombin Time 13.2 SEC (11.7-14.0) Prothromb Time International Ratio 1.0 (0.8-1.1) Sodium Level 144 mmol/L (136-145) Potassium Level 4.3 mmol/L (3.5-5.1) Chloride Level 107 mmol/L (98-107) Carbon Dioxide Level 27 mmol/L (21-32) Anion Gap 10 (6-14) Blood Urea Nitrogen 16 mg/dL (8-26) Creatinine 1.0 mg/dL (0.7-1.3) Estimated GFR (Cockcroft-Gault) 80.4 Glucose Level 107 mg/dL (70-99) Calcium Level 8.5 mg/dL (8.5-10.1) Assessment and Plan Assessmemt and Plan Problems Medical Problems: (1) Cellulitis of right hand Status: Acute Comment Review of Relevant I have reviewed the following items leena (where applicable) has been applied. Labs Laboratory Tests Test 08/10/19 07:37 08/10/19 10:25 08/11/19 05:30 White Blood Count 9.8 x10^3/uL (4.0-11.0) 9.1 x10^3/uL (4.0-11.0) Red Blood Count 4.73 x10^6/uL (4.30-5.70) 4.12 x10^6/uL (4.30-5.70) Hemoglobin 14.4 g/dL (13.0-17.5) 12.5 g/dL (13.0-17.5) Hematocrit 41.5 % (39.0-53.0) 36.4 % (39.0-53.0) Mean Corpuscular Volume 88 fL (79-100) 88 fL (79-100) Mean Corpuscular Hemoglobin 31 pg (25-35) 30 pg (25-35) Mean Corpuscular Hemoglobin Concent 35 g/dL (31-37) 34 g/dL (31-37) Red Cell Distribution Width 13.5 % (11.5-14.5) 13.2 % (11.5-14.5) Platelet Count 231 x10^3/uL (140-400) 218 x10^3/uL (140-400) Neutrophils (%) (Auto) 68 % (31-73) 78 % (31-73) Lymphocytes (%) (Auto) 21 % (24-48) 12 % (24-48) Monocytes (%) (Auto) 10 % (0-9) 9 % (0-9) Eosinophils (%) (Auto) 0 % (0-3) 0 % (0-3) Basophils (%) (Auto) 1 % (0-3) 0 % (0-3) Neutrophils # (Auto) 6.7 x10^3/uL (1.8-7.7) 7.1 x10^3/uL (1.8-7.7) Lymphocytes # (Auto) 2.1 x10^3/uL (1.0-4.8) 1.1 x10^3/uL (1.0-4.8) Monocytes # (Auto) 1.0 x10^3/uL (0.0-1.1) 0.8 x10^3/uL (0.0-1.1) Eosinophils # (Auto) 0.0 x10^3/uL (0.0-0.7) 0.0 x10^3/uL (0.0-0.7) Basophils # (Auto) 0.0 x10^3/uL (0.0-0.2) 0.0 x10^3/uL (0.0-0.2) Erythrocyte Sedimentation Rate 23 (0-15) Sodium Level 139 mmol/L (136-145) 144 mmol/L (136-145) Potassium Level 4.0 mmol/L (3.5-5.1) 4.3 mmol/L (3.5-5.1) Chloride Level 105 mmol/L (98-107) 107 mmol/L (98-107) Carbon Dioxide Level 31 mmol/L (21-32) 27 mmol/L (21-32) Anion Gap 3 (6-14) 10 (6-14) Blood Urea Nitrogen 15 mg/dL (8-26) 16 mg/dL (8-26) Creatinine 1.1 mg/dL (0.7-1.3) 1.0 mg/dL (0.7-1.3) Estimated GFR (Cockcroft-Gault) 72.1 80.4 BUN/Creatinine Ratio 14 (6-20) Glucose Level 104 mg/dL (70-99) 107 mg/dL (70-99) Calcium Level 9.6 mg/dL (8.5-10.1) 8.5 mg/dL (8.5-10.1) Total Bilirubin 0.7 mg/dL (0.2-1.0) Aspartate Amino Transf (AST/SGOT) 27 U/L (15-37) Alanine Aminotransferase (ALT/SGPT) 53 U/L (16-63) Alkaline Phosphatase 51 U/L (46-116) Total Protein 8.1 g/dL (6.4-8.2) Albumin 3.9 g/dL (3.4-5.0) Albumin/Globulin Ratio 0.9 (1.0-1.7) Body Fluid Source Synovial Body Fluid Volume Body Fluid Color Red Body Fluid Clarity Cloudy Body Fluid Nucleated Cells 6175 /cmm (Not Established) Body Fluid Mononuclear WBCs (%) 24 % Body Fluid Polymorphonuclear Cells 70 % Body Fluid Total RBCs Counted 14899 /cmm (Not Body Fluid Other Cells (%) 6 % Prothrombin Time 13.2 SEC (11.7-14.0) Prothromb Time International Ratio 1.0 (0.8-1.1) Laboratory Tests Test 08/10/19 10:25 08/11/19 05:30 Body Fluid Source Synovial Body Fluid Volume Body Fluid Color Red Body Fluid Clarity Cloudy Body Fluid Nucleated Cells 6175 /cmm (Not Established) Body Fluid Mononuclear WBCs (%) 24 % Body Fluid Polymorphonuclear Cells 70 % Body Fluid Total RBCs Counted 29140 /cmm (Not Body Fluid Other Cells (%) 6 % White Blood Count 9.1 x10^3/uL (4.0-11.0) Red Blood Count 4.12 x10^6/uL (4.30-5.70) Hemoglobin 12.5 g/dL (13.0-17.5) Hematocrit 36.4 % (39.0-53.0) Mean Corpuscular Volume 88 fL (79-100) Mean Corpuscular Hemoglobin 30 pg (25-35) Mean Corpuscular Hemoglobin Concent 34 g/dL (31-37) Red Cell Distribution Width 13.2 % (11.5-14.5) Platelet Count 218 x10^3/uL (140-400) Neutrophils (%) (Auto) 78 % (31-73) Lymphocytes (%) (Auto) 12 % (24-48) Monocytes (%) (Auto) 9 % (0-9) Eosinophils (%) (Auto) 0 % (0-3) Basophils (%) (Auto) 0 % (0-3) Neutrophils # (Auto) 7.1 x10^3/uL (1.8-7.7) Lymphocytes # (Auto) 1.1 x10^3/uL (1.0-4.8) Monocytes # (Auto) 0.8 x10^3/uL (0.0-1.1) Eosinophils # (Auto) 0.0 x10^3/uL (0.0-0.7) Basophils # (Auto) 0.0 x10^3/uL (0.0-0.2) Prothrombin Time 13.2 SEC (11.7-14.0) Prothromb Time International Ratio 1.0 (0.8-1.1) Sodium Level 144 mmol/L (136-145) Potassium Level 4.3 mmol/L (3.5-5.1) Chloride Level 107 mmol/L (98-107) Carbon Dioxide Level 27 mmol/L (21-32) Anion Gap 10 (6-14) Blood Urea Nitrogen 16 mg/dL (8-26) Creatinine 1.0 mg/dL (0.7-1.3) Estimated GFR (Cockcroft-Gault) 80.4 Glucose Level 107 mg/dL (70-99) Calcium Level 8.5 mg/dL (8.5-10.1) Microbiology 08/10/19 Blood Culture - Preliminary, Resulted NO GROWTH AFTER 1 DAY Medications Current Medications Fentanyl Citrate (Fentanyl 2ml Vial) 25 mcg PRN Q15MIN PRN IV PAIN GREATER THAN 3/10 Last administered on 08/10/19at 10:15; Start 08/10/19 at 07:15; Stop 08/11/19 at 07:14; Status DC Vancomycin HCl 250 ml @ 250 mls/hr 1X ONCE IV Last administered on 08/10/19at 08:00; Start 08/10/19 at 07:15; Stop 08/10/19 at 08:14; Status DC Acetaminophen/ Hydrocodone Bitart (Lortab 5/325) 1 tab PRN Q6HRS PRN PO MODERATE-SEVERE PAIN Last administered on 08/10/19at 14:02; Start 08/10/19 at 08:45 Morphine Sulfate (Morphine Sulfate) 2 mg PRN Q2HR PRN IV PAIN; Start 08/10/19 at 08:45 Acetaminophen (Tylenol) 500 mg PRN Q6HRS PRN PO MILD PAIN / TEMP; Start 08/10/19 at 08:45 Ondansetron HCl (Zofran) 4 mg PRN Q6HRS PRN IVP NAUSEA/VOMITING; Start 08/10/19 at 08:45 Vancomycin HCl (Vanco Per Pharmacy) 1 each PRN DAILY PRN MC SEE COMMENTS Last administered on 08/10/19at 14:29; Start 08/10/19 at 08:45 Clonidine HCl (Catapres) 0.1 mg PRN Q1HR PRN PO HYPERTENSION; Start 08/10/19 at 08:45 Vancomycin HCl 250 ml @ 250 mls/hr 1X ONCE IV Last administered on 08/10/19at 11:21; Start 08/10/19 at 09:00; Stop 08/10/19 at 09:59; Status DC Ondansetron HCl (Zofran) 4 mg PRN Q8HRS PRN IV NAUSEA/VOMITING; Start 08/10/19 at 09:00; Stop 08/11/19 at 08:59 Morphine Sulfate (Morphine Sulfate) 4 mg PRN Q2HR PRN IV PAIN; Start 08/10/19 at 09:00; Stop 08/11/19 at 08:59 Acetaminophen (Tylenol) 650 mg PRN Q4HRS PRN PO FEVER; Start 08/10/19 at 09:00; Stop 08/11/19 at 08:59 Sodium Chloride 1,000 ml @ 100 mls/hr 1X ONCE IV Last administered on 08/10/19at 14:05; Start 08/10/19 at 09:45; Stop 08/10/19 at 19:44; Status DC Propofol 20 ml @ As Directed STK-MED ONCE IV ; Start 08/10/19 at 10:34; Stop 08/10/19 at 10:34; Status DC Lidocaine HCl (Lidocaine Pf 2% Vial) 5 ml STK-MED ONCE .ROUTE ; Start 08/10/19 at 10:34; Stop 08/10/19 at 10:34; Status DC Fentanyl Citrate (Fentanyl 2ml Vial) 100 mcg STK-MED ONCE .ROUTE ; Start 08/10/19 at 10:34; Stop 08/10/19 at 10:34; Status DC Fentanyl Citrate (Fentanyl 2ml Vial) 25 mcg PRN Q5MIN PRN IV MILD PAIN 1-3; Start 08/10/19 at 10:45; Stop 08/11/19 at 10:44 Fentanyl Citrate (Fentanyl 2ml Vial) 50 mcg PRN Q5MIN PRN IV MODERATE TO SEVERE PAIN; Start 08/10/19 at 10:45; Stop 08/11/19 at 10:44 Morphine Sulfate (Morphine Sulfate) 1 mg PRN Q10MIN PRN IV SEVERE PAIN 7-10; Start 08/10/19 at 10:45; Stop 08/11/19 at 10:44 Ringer's Solution 1,000 ml @ 30 mls/hr Q24H IV Last administered on 08/10/19at 11:24; Start 08/10/19 at 10:35; Stop 08/10/19 at 22:34; Status DC Lidocaine HCl (Xylocaine-Mpf 1% 2ml Vial) 2 ml PRN 1X PRN ID PRIOR TO IV START; Start 08/10/19 at 10:45; Stop 08/11/19 at 10:44 Hydromorphone HCl (Dilaudid) 0.5 mg PRN Q10MIN PRN IV SEV PAIN, Second choice; Start 08/10/19 at 10:45; Stop 08/11/19 at 10:44 Prochlorperazine Edisylate (Compazine) 5 mg PACU PRN PRN IV NAUSEA, MRX1; Start 08/10/19 at 10:45; Stop 08/11/19 at 10:44 Piperacillin Sod/ Tazobactam Sod 3.375 gm/Sodium Chloride 50 ml @ 100 mls/hr Q6HRS IV Last administered on 08/11/19at 05:46; Start 08/10/19 at 12:00 Ondansetron HCl (Zofran) 4 mg STK-MED ONCE .ROUTE ; Start 08/10/19 at 11:37; Stop 08/10/19 at 11:38; Status DC Dexamethasone Sodium Phosphate (Decadron) 4 mg STK-MED ONCE .ROUTE ; Start 08/10/19 at 11:37; Stop 08/10/19 at 11:38; Status DC Sevoflurane (Ultane) 15 ml STK-MED ONCE IH ; Start 08/10/19 at 11:37; Stop 08/10/19 at 11:38; Status DC Vancomycin HCl 1.5 gm/Sodium Chloride 500 ml @ 250 mls/hr Q12H IV Last administered on 08/10/19at 23:07; Start 08/10/19 at 23:30 Vancomycin HCl (Vancomycin Trough Level) 1 each 1X ONCE MC ; Start 08/11/19 at 23:00; Stop 08/11/19 at 23:01 Active Scripts Active [place] 5-325 Tablet (Acetaminophen/Hydrocodone Bitart) 1 Each Tablet 1 Tab PO PRN Q6HRS PRN Cipro (Ciprofloxacin Hcl) 250 Mg Tablet 1 Tab PO BID Azithromycin Tablet (Azithromycin) 250 Mg Tablet 1 Pkg PO UD Vitals/I & O Vital Sign - Last 24 Hours 08/10/19 08/10/19 08/10/19 08/10/19 10:10 10:15 11:15 12:04 Temp 97.0 97.0 Pulse 85 76 Resp 16 16 20 B/P (MAP) 138/87 (104) 131/78 Pulse Ox 98 98 O2 Delivery Room Air Room Air Mask O2 Flow Rate 10 08/10/19 08/10/19 08/10/19 08/10/19 12:04 12:19 12:34 12:41 Temp 97.0 97.0 Pulse 78 79 80 79 Resp 22 22 20 20 B/P (MAP) 123/61 130/78 135/80 116/74 Pulse Ox 97 95 92 93 O2 Delivery Simple Mask Room Air Room Air Room Air O2 Flow Rate 10 08/10/19 08/10/19 08/10/19 08/10/19 12:55 13:15 13:27 13:27 Temp 98.0 98.0 Pulse 78 76 Resp 20 18 B/P (MAP) 127/75 119/76 (90) Pulse Ox 93 94 O2 Delivery Room Air Room Air Room Air Room Air 08/10/19 08/10/19 08/10/19 08/10/19 13:28 13:30 13:45 14:00 Pulse 80 86 Resp 18 18 B/P (MAP) 118/75 (89) 122/76 (91) Pulse Ox 93 94 O2 Delivery Room Air Room Air Room Air Room Air 08/10/19 08/10/19 08/10/19 08/10/19 14:00 14:02 14:30 15:00 Pulse 85 90 89 Resp 18 18 18 B/P (MAP) 119/71 (87) 118/74 (89) 124/74 (91) Pulse Ox 95 95 95 O2 Delivery Room Air Room Air Room Air Room Air 08/10/19 08/10/19 08/10/19 08/10/19 15:00 16:00 19:00 20:22 Temp 97.5 99.0 97.5 99.0 Pulse 90 84 Resp 18 16 B/P (MAP) 118/65 (82) 99/63 (75) Pulse Ox 95 93 O2 Delivery Room Air Room Air Room Air Room Air 08/10/19 08/11/19 08/11/19 23:00 02:53 07:00 Temp 98.2 98.0 97.7 98.2 98.0 97.7 Pulse 79 70 63 Resp 16 16 18 B/P (MAP) 97/56 (70) 110/66 (81) 118/67 (84) Pulse Ox 94 95 96 O2 Delivery Room Air Room Air Room Air Intake and Output 08/10/19 08/10/19 08/11/19 15:00 23:00 07:00 Intake Total 900 ml 240 ml 1600 ml Output Total 5 ml 0 ml Balance 895 ml 240 ml 1600 ml WILMER PIERCE MD Aug 11, 2019 08:46
[2019-08-11] MEDS: HYDROcodone/APAP 5/325MG 1 TAB TABLET PO PRN ×3 (09:25→21:18)
--- NOTE | 2019-08-11 10:17 | PDOC ---
ORTHO PROGRESS NOTES Subjective Patient resting comfortably in bed, with mild complaint of pain. Post-op Day: 1 Procedure Right Wrist Arthrotomy with irrigation and debridement of septic wrist joint. Vitals Vital Signs Date Time Temp Pulse Resp B/P (MAP) Pulse Ox O2 Delivery O2 Flow Rate FiO2 08/11/19 09:25 18 08/11/19 08:00 Room Air 08/11/19 07:00 97.7 63 118/67 (84) 96 97.7 08/10/19 12:04 10 Labs Laboratory Tests Test 08/10/19 07:37 08/10/19 10:25 08/11/19 05:30 White Blood Count 9.8 x10^3/uL (4.0-11.0) 9.1 x10^3/uL (4.0-11.0) Red Blood Count 4.73 x10^6/uL (4.30-5.70) 4.12 x10^6/uL (4.30-5.70) Hemoglobin 14.4 g/dL (13.0-17.5) 12.5 g/dL (13.0-17.5) Hematocrit 41.5 % (39.0-53.0) 36.4 % (39.0-53.0) Mean Corpuscular Volume 88 fL (79-100) 88 fL (79-100) Mean Corpuscular Hemoglobin 31 pg (25-35) 30 pg (25-35) Mean Corpuscular Hemoglobin Concent 35 g/dL (31-37) 34 g/dL (31-37) Red Cell Distribution Width 13.5 % (11.5-14.5) 13.2 % (11.5-14.5) Platelet Count 231 x10^3/uL (140-400) 218 x10^3/uL (140-400) Neutrophils (%) (Auto) 68 % (31-73) 78 % (31-73) Lymphocytes (%) (Auto) 21 % (24-48) 12 % (24-48) Monocytes (%) (Auto) 10 % (0-9) 9 % (0-9) Eosinophils (%) (Auto) 0 % (0-3) 0 % (0-3) Basophils (%) (Auto) 1 % (0-3) 0 % (0-3) Neutrophils # (Auto) 6.7 x10^3/uL (1.8-7.7) 7.1 x10^3/uL (1.8-7.7) Lymphocytes # (Auto) 2.1 x10^3/uL (1.0-4.8) 1.1 x10^3/uL (1.0-4.8) Monocytes # (Auto) 1.0 x10^3/uL (0.0-1.1) 0.8 x10^3/uL (0.0-1.1) Eosinophils # (Auto) 0.0 x10^3/uL (0.0-0.7) 0.0 x10^3/uL (0.0-0.7) Basophils # (Auto) 0.0 x10^3/uL (0.0-0.2) 0.0 x10^3/uL (0.0-0.2) Erythrocyte Sedimentation Rate 23 (0-15) Sodium Level 139 mmol/L (136-145) 144 mmol/L (136-145) Potassium Level 4.0 mmol/L (3.5-5.1) 4.3 mmol/L (3.5-5.1) Chloride Level 105 mmol/L (98-107) 107 mmol/L (98-107) Carbon Dioxide Level 31 mmol/L (21-32) 27 mmol/L (21-32) Anion Gap 3 (6-14) 10 (6-14) Blood Urea Nitrogen 15 mg/dL (8-26) 16 mg/dL (8-26) Creatinine 1.1 mg/dL (0.7-1.3) 1.0 mg/dL (0.7-1.3) Estimated GFR (Cockcroft-Gault) 72.1 80.4 BUN/Creatinine Ratio 14 (6-20) Glucose Level 104 mg/dL (70-99) 107 mg/dL (70-99) Calcium Level 9.6 mg/dL (8.5-10.1) 8.5 mg/dL (8.5-10.1) Total Bilirubin 0.7 mg/dL (0.2-1.0) Aspartate Amino Transf (AST/SGOT) 27 U/L (15-37) Alanine Aminotransferase (ALT/SGPT) 53 U/L (16-63) Alkaline Phosphatase 51 U/L (46-116) Total Protein 8.1 g/dL (6.4-8.2) Albumin 3.9 g/dL (3.4-5.0) Albumin/Globulin Ratio 0.9 (1.0-1.7) Body Fluid Source Synovial Body Fluid Volume Body Fluid Color Red Body Fluid Clarity Cloudy Body Fluid Nucleated Cells 6175 /cmm (Not Established) Body Fluid Mononuclear WBCs (%) 24 % Body Fluid Polymorphonuclear Cells 70 % Body Fluid Total RBCs Counted 92150 /cmm (Not Body Fluid Other Cells (%) 6 % Prothrombin Time 13.2 SEC (11.7-14.0) Prothromb Time International Ratio 1.0 (0.8-1.1) Laboratory Tests Test 08/10/19 10:25 08/11/19 05:30 Body Fluid Source Synovial Body Fluid Volume Body Fluid Color Red Body Fluid Clarity Cloudy Body Fluid Nucleated Cells 6175 /cmm (Not Established) Body Fluid Mononuclear WBCs (%) 24 % Body Fluid Polymorphonuclear Cells 70 % Body Fluid Total RBCs Counted 37922 /cmm (Not Body Fluid Other Cells (%) 6 % White Blood Count 9.1 x10^3/uL (4.0-11.0) Red Blood Count 4.12 x10^6/uL (4.30-5.70) Hemoglobin 12.5 g/dL (13.0-17.5) Hematocrit 36.4 % (39.0-53.0) Mean Corpuscular Volume 88 fL (79-100) Mean Corpuscular Hemoglobin 30 pg (25-35) Mean Corpuscular Hemoglobin Concent 34 g/dL (31-37) Red Cell Distribution Width 13.2 % (11.5-14.5) Platelet Count 218 x10^3/uL (140-400) Neutrophils (%) (Auto) 78 % (31-73) Lymphocytes (%) (Auto) 12 % (24-48) Monocytes (%) (Auto) 9 % (0-9) Eosinophils (%) (Auto) 0 % (0-3) Basophils (%) (Auto) 0 % (0-3) Neutrophils # (Auto) 7.1 x10^3/uL (1.8-7.7) Lymphocytes # (Auto) 1.1 x10^3/uL (1.0-4.8) Monocytes # (Auto) 0.8 x10^3/uL (0.0-1.1) Eosinophils # (Auto) 0.0 x10^3/uL (0.0-0.7) Basophils # (Auto) 0.0 x10^3/uL (0.0-0.2) Prothrombin Time 13.2 SEC (11.7-14.0) Prothromb Time International Ratio 1.0 (0.8-1.1) Sodium Level 144 mmol/L (136-145) Potassium Level 4.3 mmol/L (3.5-5.1) Chloride Level 107 mmol/L (98-107) Carbon Dioxide Level 27 mmol/L (21-32) Anion Gap 10 (6-14) Blood Urea Nitrogen 16 mg/dL (8-26) Creatinine 1.0 mg/dL (0.7-1.3) Estimated GFR (Cockcroft-Gault) 80.4 Glucose Level 107 mg/dL (70-99) Calcium Level 8.5 mg/dL (8.5-10.1) Notes awake and alert Assessment and Plan S/P right wrist I&D septic wrist joint dressing dry and intact moving fingers well motor and sensation intact distally ok to d/c per ortho standpoint when pain controlled and if able to take PO antibiotics F/u in clinic in approx 2 weeks, call for CARA Cameron APRN Aug 11, 2019 10:17
[2019-08-11] MEDS: POLYETHYLENE GLYCOL 3350 17 GM PACKET. PO SCH (10:46)
[2019-08-11] MEDS: VANCOMYCIN 1.5 GM in IV NORMAL SALINE 500ML BAG 500 ML IV SCH (10:47)
[2019-08-11 11:00] VITALS: BP 124/64
--- NOTE | 2019-08-11 11:24 | PDOC ---
Infectious Disease Note Subjective Subjective s/p right wrist I&D septic wrist joint c/o mild pain wants to go home No F/C/N/V/D ROS ROS per HPI Vital Sign Vital Signs Vital Signs Date Time Temp Pulse Resp B/P (MAP) Pulse Ox O2 Delivery O2 Flow Rate FiO2 08/11/19 10:25 18 Room Air 08/11/19 07:00 97.7 63 118/67 (84) 96 97.7 08/10/19 12:04 10 Physical Exam PHYSICAL EXAM GENERAL: Propped up in bed, alert, NAD HEENT: Pupils are equally round and reactive. Oropharynx pink and moist. NECK: Supple. LUNGS: Clear to auscultation. CARDIAC: S1 and S2. ABDOMEN: Soft and nontender. EXTREMITIES: Post-op dressing right hand dry,+ ice pack. Fingers are warm, less swollen. SKIN: Warm to touch. No signs of rash. NEUROLOGIC: Alert, answering questions appropriately. Labs Lab Laboratory Tests Test 08/11/19 05:30 White Blood Count 9.1 x10^3/uL (4.0-11.0) Red Blood Count 4.12 x10^6/uL (4.30-5.70) Hemoglobin 12.5 g/dL (13.0-17.5) Hematocrit 36.4 % (39.0-53.0) Mean Corpuscular Volume 88 fL (79-100) Mean Corpuscular Hemoglobin 30 pg (25-35) Mean Corpuscular Hemoglobin Concent 34 g/dL (31-37) Red Cell Distribution Width 13.2 % (11.5-14.5) Platelet Count 218 x10^3/uL (140-400) Neutrophils (%) (Auto) 78 % (31-73) Lymphocytes (%) (Auto) 12 % (24-48) Monocytes (%) (Auto) 9 % (0-9) Eosinophils (%) (Auto) 0 % (0-3) Basophils (%) (Auto) 0 % (0-3) Neutrophils # (Auto) 7.1 x10^3/uL (1.8-7.7) Lymphocytes # (Auto) 1.1 x10^3/uL (1.0-4.8) Monocytes # (Auto) 0.8 x10^3/uL (0.0-1.1) Eosinophils # (Auto) 0.0 x10^3/uL (0.0-0.7) Basophils # (Auto) 0.0 x10^3/uL (0.0-0.2) Prothrombin Time 13.2 SEC (11.7-14.0) Prothromb Time International Ratio 1.0 (0.8-1.1) Sodium Level 144 mmol/L (136-145) Potassium Level 4.3 mmol/L (3.5-5.1) Chloride Level 107 mmol/L (98-107) Carbon Dioxide Level 27 mmol/L (21-32) Anion Gap 10 (6-14) Blood Urea Nitrogen 16 mg/dL (8-26) Creatinine 1.0 mg/dL (0.7-1.3) Estimated GFR (Cockcroft-Gault) 80.4 Glucose Level 107 mg/dL (70-99) Calcium Level 8.5 mg/dL (8.5-10.1) Micro Microbiology 08/10/19 Blood Culture - Preliminary, Resulted NO GROWTH AFTER 1 DAY Objective Assessment Cellulitis of right hand/septic wrist - s/p joint aspiration: cloudy, WBC > 6000, 08/10 - s/p wrist arthrotomy, I and D, 08/10 - Failed OP cipro Puncture wound (nail) right hand. Prediabetes HLD Plan Plan of Care Tetanus shot 08/08 Continue vancomycin and Zosyn Monitor renal function closely f/u cultures D/w Dr. Allen last evening regarding findings D/w family Attending Co-Sign Attending Co-Sign The patient was seen and interviewed as well as examined at the bedside. The chart was reviewed. The case was discussed. Agree with the plan of care. PAULO RICHARD APRN Aug 11, 2019 11:24 HEIDE ROBERTSON MD Aug 11, 2019 16:31
[2019-08-11] MEDS: VANCOMYCIN PER PHARMACY MC PRN (13:05)
[2019-08-11 14:47] VITALS: BP 122/62
[2019-08-11 19:00] VITALS: BP 119/77
[2019-08-11] MEDS: PSYLLIUM HUSK (SUGAR FREE) 1 PKT PACKET PO SCH (21:18)
[2019-08-11] MEDS: LACTOBACILLUS RHAMNOSUS GG 1 CAPSULE. PO SCH (21:18)
[2019-08-11 23:00] VITALS: BP 106/64
[2019-08-11 23:43] LABS: VANC TR 8.4 mcg/mL (10.0-20.0)
[2019-08-12] MEDS: PIPERACILLIN/TAZOBACTAM 3.375 GM in IV NORMAL SALINE 50ML 50 ML IV SCH ×5 (00:30→23:41)
[2019-08-12] MEDS: VANCOMYCIN PER PHARMACY MC PRN ×2 (00:50→15:57)
--- NOTE | 2019-08-12 00:50 | NUR ---
Pharmacy Vancomycin Dosing Note S:Consulted to monitor and dose vancomycin started 08/10/19. O:VILMA ESCALANTE is a 48 year old M with Cellulitis SEPTIC ARTHRITIS . Height: 5 feet, 7 inches Weight: 89.873395 kg [place] Body Weight: 66.10 Adjusted Body Weight: 75.94 Dosing Weight: Actual Other Antibiotics: ZOSYN LABS: Last BUN: 16 Last Creatinine: 1 Creatinine Clearance: 90 mL/min Last WBC: 9.8 Last Procalcitonin: Tmax (past 24 hours): 98.0 Microbiology: 08/11 08/10 BCX NGTD I/O: NO UO/VOIDS RECORDED BUT SCR NORMAL Drug Levels: Last Trough level: 8.4 on 08/11/19 at 2300 Last dose given 08/11/19 at 1047 Vancomycin Dosing: Loading Dose: 2000 mg x1 Dosing Weight: Actual Target Trough: 15-20 A: Based on: TROUGH P: 1. Begin Vancomycin 1500 mg IV q8h 2. Follow up Trough level on 08/12/19 at 2330 3. Pharmacy will continue to monitor, follow and adjust therapy as needed. ALONA MCCORMICK RPH, 08/12/19 0050 Signed: 08/12/19 at 0050 by ALONA MCCORMICK RPH PHA
[2019-08-12] MEDS: VANCOMYCIN 1.5 GM in IV NORMAL SALINE 500ML BAG 500 ML IV SCH ×3 (01:15→15:50)
[2019-08-12 03:00] VITALS: BP 110/65
[2019-08-12 04:20] LABS: PROTHROMBIN TIME PATIENT 12.9 SEC (11.7-14.0)
[2019-08-12 07:00] VITALS: BP 122/79
[2019-08-12] MEDS: LACTOBACILLUS RHAMNOSUS GG 1 CAPSULE. PO SCH ×2 (07:46→21:07)
[2019-08-12] MEDS: HYDROcodone/APAP 5/325MG 1 TAB TABLET PO PRN ×2 (07:46→13:59)
[2019-08-12] MEDS: POLYETHYLENE GLYCOL 3350 17 GM PACKET. PO SCH (07:47)
--- NOTE | 2019-08-12 08:39 | PDOC ---
PROGRESS NOTES Chief Complaint Chief Complaint Right wrist cellulitis and abscess, septic arthritis - s/p joint aspiration with WBC > 6K on arthrotomy and I&D on 08/10/2019, failed outpatient therapy on oral antibiotics (cipro) Obesity Prediabetes HLD Anemia History of Present Illness History of Present Illness Mr Hayward is a 48-year-old male who on 08/08 was working at home when a wooden board, with a nail sticking out, fell, puncturing his right hand. He says he wrapped his hand to stop the bleeding. A few hours later, he arrived to the ER with complaints of pain and swelling. X-ray at the time showed no acute fracture, dislocation or radiopaque foreign body. He was given a tetanus shot, prescription for Cipro and released home. Over the following 2 days, he says his hand became increasingly painful, swollen with limited range of motion despite antibiotics. He is now on vancomycin. Seen by ID and Orthopedic surgery in consultation. now s/p Right wrist arthrotomy irrigation debridement septic wrist joint on 08/10/19. He is tolerating PO pain medications well, still on IV antibiotics. No numbness or tingling in hand, it is slightly swollen. No diarrhea, no SOB or CP. He is asking to discharge soon. Plan: Will d/w ID antibiotic regimen - will await cultures, based on his septic joint and outpatient failure we will need final cultures prior to d/c. Added bowel regimen for opioid induced constipation Vitals Vitals Vital Signs Date Time Temp Pulse Resp B/P (MAP) Pulse Ox O2 Delivery O2 Flow Rate FiO2 08/12/19 07:46 18 08/12/19 03:00 98.4 66 110/65 (80) 93 Room Air 98.4 08/11/19 22:18 10.0 Physical Exam Physical Exam GENERAL: Propped up in bed, alert, NAD HEENT: Pupils are equally round and reactive. Oropharynx pink and moist. NECK: Supple. LUNGS: Clear to auscultation. CARDIAC: S1 and S2. ABDOMEN: Soft and nontender. EXTREMITIES: Post-op dressing right hand dry,+ ice pack. Fingers are warm, less swollen. SKIN: Warm to touch. No signs of rash. NEUROLOGIC: Alert, answering questions appropriately. General: Alert, Oriented X3, Cooperative, No acute distress Heart: Regular rate, Normal S1, Normal S2 Lungs: Clear Abdomen: Normal bowel sounds, Soft, No tenderness, No hepatosplenomegaly, No masses Extremities: Other (RT hand markedly swoelln, cant nake a fist, tenderness and warm up to rt forarm near elbow, punctired dorsal site hand wound visible, no bleeding today) Labs LABS Laboratory Tests Test 08/11/19 23:05 08/12/19 03:14 Vancomycin Level Trough 8.4 mcg/mL (10.0-20.0) Vancomycin Last Dose Date 08/11/19 Vancomycin Last Dose Time 1130 Prothrombin Time 12.9 SEC (11.7-14.0) Prothromb Time International Ratio 1.0 (0.8-1.1) Assessment and Plan Assessmemt and Plan Problems Medical Problems: (1) Cellulitis of right hand Status: Acute Comment Review of Relevant I have reviewed the following items leena (where applicable) has been applied. Labs Laboratory Tests Test 08/10/19 10:25 08/11/19 05:30 08/11/19 23:05 08/12/19 03:14 Body Fluid Source Synovial Body Fluid Volume Body Fluid Color Red Body Fluid Clarity Cloudy Body Fluid Nucleated Cells 6175 /cmm (Not Established) Body Fluid Mononuclear WBCs (%) 24 % Body Fluid Polymorphonuclear Cells 70 % Body Fluid Total RBCs Counted 87258 /cmm (Not Body Fluid Other Cells (%) 6 % White Blood Count 9.1 x10^3/uL (4.0-11.0) Red Blood Count 4.12 x10^6/uL (4.30-5.70) Hemoglobin 12.5 g/dL (13.0-17.5) Hematocrit 36.4 % (39.0-53.0) Mean Corpuscular Volume 88 fL (79-100) Mean Corpuscular Hemoglobin 30 pg (25-35) Mean Corpuscular Hemoglobin Concent 34 g/dL (31-37) Red Cell Distribution Width 13.2 % (11.5-14.5) Platelet Count 218 x10^3/uL (140-400) Neutrophils (%) (Auto) 78 % (31-73) Lymphocytes (%) (Auto) 12 % (24-48) Monocytes (%) (Auto) 9 % (0-9) Eosinophils (%) (Auto) 0 % (0-3) Basophils (%) (Auto) 0 % (0-3) Neutrophils # (Auto) 7.1 x10^3/uL (1.8-7.7) Lymphocytes # (Auto) 1.1 x10^3/uL (1.0-4.8) Monocytes # (Auto) 0.8 x10^3/uL (0.0-1.1) Eosinophils # (Auto) 0.0 x10^3/uL (0.0-0.7) Basophils # (Auto) 0.0 x10^3/uL (0.0-0.2) Prothrombin Time 13.2 SEC (11.7-14.0) 12.9 SEC (11.7-14.0) Prothromb Time International Ratio 1.0 (0.8-1.1) 1.0 (0.8-1.1) Sodium Level 144 mmol/L (136-145) Potassium Level 4.3 mmol/L (3.5-5.1) Chloride Level 107 mmol/L (98-107) Carbon Dioxide Level 27 mmol/L (21-32) Anion Gap 10 (6-14) Blood Urea Nitrogen 16 mg/dL (8-26) Creatinine 1.0 mg/dL (0.7-1.3) Estimated GFR (Cockcroft-Gault) 80.4 Glucose Level 107 mg/dL (70-99) Calcium Level 8.5 mg/dL (8.5-10.1) Vancomycin Level Trough 8.4 mcg/mL (10.0-20.0) Vancomycin Last Dose Date 08/11/19 Vancomycin Last Dose Time 1130 Laboratory Tests Test 08/11/19 23:05 08/12/19 03:14 Vancomycin Level Trough 8.4 mcg/mL (10.0-20.0) Vancomycin Last Dose Date 08/11/19 Vancomycin Last Dose Time 1130 Prothrombin Time 12.9 SEC (11.7-14.0) Prothromb Time International Ratio 1.0 (0.8-1.1) Microbiology 08/10/19 Anaerobic/Aerobic Culture, Resulted Pending 08/10/19 Anaerobic Culture Result 1 (ANDREW), Resulted Pending 08/10/19 Aerobic Culture, Resulted Pending 08/10/19 Aerobic Culture Result 1 (ANDREW), Resulted Pending 08/10/19 Gram Stain - Final, Resulted 08/10/19 Gram Stain Result 1 (ANDREW) - Final, Resulted 08/10/19 Gram Stain Result 2 (ANDREW) - Final, Resulted 08/10/19 Blood Culture - Preliminary, Resulted NO GROWTH AFTER 2 DAYS Medications Current Medications Fentanyl Citrate (Fentanyl 2ml Vial) 25 mcg PRN Q15MIN PRN IV PAIN GREATER THAN 3/10 Last administered on 08/10/19at 10:15; Start 08/10/19 at 07:15; Stop at 07:14; Status DC Vancomycin HCl 250 ml @ 250 mls/hr 1X ONCE IV Last administered on 08/10/19at 08:00; Start 08/10/19 at 07:15; Stop 08/10/19 at 08:14; Status DC Acetaminophen/ Hydrocodone Bitart (Lortab 5/325) 1 tab PRN Q6HRS PRN PO MODERATE-SEVERE PAIN Last administered on 08/12/19at 07:46; Start 08/10/19 at 08:45 Morphine Sulfate (Morphine Sulfate) 2 mg PRN Q2HR PRN IV PAIN; Start 08/10/19 at 08:45; Stop 08/11/19 at 10:11; Status DC Acetaminophen (Tylenol) 500 mg PRN Q6HRS PRN PO MILD PAIN / TEMP; Start 08/10/19 at 08:45 Ondansetron HCl (Zofran) 4 mg PRN Q6HRS PRN IVP NAUSEA/VOMITING; Start 08/10/19 at 08:45 Vancomycin HCl (Vanco Per Pharmacy) 1 each PRN DAILY PRN MC SEE COMMENTS Last administered on 08/12/19at 00:50; Start 08/10/19 at 08:45 Clonidine HCl (Catapres) 0.1 mg PRN Q1HR PRN PO HYPERTENSION; Start 08/10/19 at 08:45 Vancomycin HCl 250 ml @ 250 mls/hr 1X ONCE IV Last administered on 08/10/19at 11:21; Start 08/10/19 at 09:00; Stop 08/10/19 at 09:59; Status DC Ondansetron HCl (Zofran) 4 mg PRN Q8HRS PRN IV NAUSEA/VOMITING; Start 08/10/19 at 09:00; Stop 08/11/19 at 08:59; Status DC Morphine Sulfate (Morphine Sulfate) 4 mg PRN Q2HR PRN IV PAIN; Start 08/10/19 at 09:00; Stop 08/11/19 at 08:59; Status DC Acetaminophen (Tylenol) 650 mg PRN Q4HRS PRN PO FEVER; Start 08/10/19 at 09:00; Stop 08/11/19 at 08:59; Status DC Sodium Chloride 1,000 ml @ 100 mls/hr 1X ONCE IV Last administered on 08/10/19at 14:05; Start 08/10/19 at 09:45; Stop 08/10/19 at 19:44; Status DC Propofol 20 ml @ As Directed STK-MED ONCE IV ; Start 08/10/19 at 10:34; Stop 08/10/19 at 10:34; Status DC Lidocaine HCl (Lidocaine Pf 2% Vial) 5 ml STK-MED ONCE .ROUTE ; Start 08/10/19 at 10:34; Stop 08/10/19 at 10:34; Status DC Fentanyl Citrate (Fentanyl 2ml Vial) 100 mcg STK-MED ONCE .ROUTE ; Start 08/10/19 at 10:34; Stop 08/10/19 at 10:34; Status DC Fentanyl Citrate (Fentanyl 2ml Vial) 25 mcg PRN Q5MIN PRN IV MILD PAIN 1-3; Start 08/10/19 at 10:45; Stop 08/11/19 at 10:44; Status DC Fentanyl Citrate (Fentanyl 2ml Vial) 50 mcg PRN Q5MIN PRN IV MODERATE TO SEVERE PAIN; Start 08/10/19 at 10:45; Stop 08/11/19 at 10:44; Status DC Morphine Sulfate (Morphine Sulfate) 1 mg PRN Q10MIN PRN IV SEVERE PAIN 7-10; Start 08/10/19 at 10:45; Stop 08/11/19 at 10:11; Status DC Ringer's Solution 1,000 ml @ 30 mls/hr Q24H IV Last administered on 08/10/19at 11:24; Start 08/10/19 at 10:35; Stop 08/10/19 at 22:34; Status DC Lidocaine HCl (Xylocaine-Mpf 1% 2ml Vial) 2 ml PRN 1X PRN ID PRIOR TO IV START; Start 08/10/19 at 10:45; Stop 08/11/19 at 10:44; Status DC Hydromorphone HCl (Dilaudid) 0.5 mg PRN Q10MIN PRN IV SEV PAIN, Second choice; Start 08/10/19 at 10:45; Stop 08/11/19 at 10:44; Status DC Prochlorperazine Edisylate (Compazine) 5 mg PACU PRN PRN IV NAUSEA, MRX1; Start 08/10/19 at 10:45; Stop 08/11/19 at 10:44; Status DC Piperacillin Sod/ Tazobactam Sod 3.375 gm/Sodium Chloride 50 ml @ 100 mls/hr Q6HRS IV Last administered on 08/12/19at 05:52; Start 08/10/19 at 12:00 Ondansetron HCl (Zofran) 4 mg STK-MED ONCE .ROUTE ; Start 08/10/19 at 11:37; Stop 08/10/19 at 11:38; Status DC Dexamethasone Sodium Phosphate (Decadron) 4 mg STK-MED ONCE .ROUTE ; Start 08/10/19 at 11:37; Stop 08/10/19 at 11:38; Status DC Sevoflurane (Ultane) 15 ml STK-MED ONCE IH ; Start 08/10/19 at 11:37; Stop 08/10/19 at 11:38; Status DC Vancomycin HCl 1.5 gm/Sodium Chloride 500 ml @ 250 mls/hr Q12H IV Last administered on 08/11/19at 10:47; Start 08/10/19 at 23:30; Stop 08/11/19 at 23:50; Status DC Vancomycin HCl (Vancomycin Trough Level) 1 each 1X ONCE MC Last administered on 08/11/19at 23:00; Start 08/11/19 at 23:00; Stop 08/11/19 at 23:01; Status DC Polyethylene Glycol (miraLAX PACKET) 17 gm DAILY PO Last administered on 08/12/19at 07:47; Start 08/11/19 at 11:00 Psyllium Hydrophilic Mucilloid (Metamucil Fiber Packet) 1 pkt QHS PO Last administered on 08/11/19at 21:18; Start 08/11/19 at 21:00 Lactobacillus Rhamnosus (Culturelle) 1 cap BID PO Last administered on 08/12/19at 07:46; Start 08/11/19 at 21:00 Vancomycin HCl 1.5 gm/Sodium Chloride 500 ml @ 250 mls/hr Q8H IV Last administered on 08/12/19at 07:54; Start 08/12/19 at 00:00 Vancomycin HCl (Vancomycin Trough Level) 1 each 1X ONCE MC ; Start 08/12/19 at 23:30; Stop 08/12/19 at 23:31 Active Scripts Active [place] 5-325 Tablet (Acetaminophen/Hydrocodone Bitart) 1 Each Tablet 1 Tab PO PRN Q6HRS PRN Cipro (Ciprofloxacin Hcl) 250 Mg Tablet 1 Tab PO BID Azithromycin Tablet (Azithromycin) 250 Mg Tablet 1 Pkg PO UD Vitals/I & O Vital Sign - Last 24 Hours 08/11/19 08/11/19 08/11/19 08/11/19 09:25 10:25 11:00 14:47 Temp 97.7 97.7 97.7 97.7 Pulse 69 69 Resp 18 18 18 18 B/P (MAP) 124/64 (84) 122/62 (82) Pulse Ox 96 96 O2 Delivery Room Air Room Air Room Air 08/11/19 08/11/19 08/11/19 08/11/19 15:24 16:24 19:00 20:00 Temp 97.7 97.7 Pulse 68 Resp 18 18 18 B/P (MAP) 119/77 (91) Pulse Ox 95 O2 Delivery Room Air Room Air Room Air Room Air 08/11/19 08/11/19 08/11/19 08/12/19 21:18 22:18 23:00 03:00 Temp 98.2 98.4 98.2 98.4 Pulse 79 66 Resp 18 18 B/P (MAP) 106/64 (78) 110/65 (80) Pulse Ox 96 96 95 93 O2 Delivery Room Air Room Air Room Air Room Air O2 Flow Rate 10.0 10.0 08/12/19 07:46 Resp 18 Intake and Output 08/11/19 08/11/19 08/12/19 15:00 23:00 07:00 Intake Total 1150 ml 350 ml Balance 1150 ml 350 ml WILMER PIERCE MD Aug 12, 2019 08:39
[2019-08-12 11:00] VITALS: BP 117/69
--- NOTE | 2019-08-12 11:29 | PDOC ---
Infectious Disease Note Subjective Subjective c/o mild pain No F/C/N/V/D ROS ROS per HPI Vital Sign Vital Signs Vital Signs Date Time Temp Pulse Resp B/P (MAP) Pulse Ox O2 Delivery O2 Flow Rate FiO2 08/12/19 08:46 18 Room Air 08/12/19 07:00 97.5 66 122/79 (93) 95 97.5 08/11/19 22:18 10.0 Physical Exam PHYSICAL EXAM GENERAL: Propped up in bed, alert, smiling HEENT: Pupils are equally round and reactive. Oropharynx pink and moist. NECK: Supple. LUNGS: Clear to auscultation. CARDIAC: S1 and S2. ABDOMEN: Soft and nontender. EXTREMITIES: Post-op dressing right hand dry, + wiggles fingers, warm, less swollen. SKIN: Warm to touch. No signs of rash. NEUROLOGIC: Alert, answering questions appropriately. PIV Labs Lab Laboratory Tests Test 08/11/19 23:05 08/12/19 03:14 Vancomycin Level Trough 8.4 mcg/mL (10.0-20.0) Vancomycin Last Dose Date 08/11/19 Vancomycin Last Dose Time 1130 Prothrombin Time 12.9 SEC (11.7-14.0) Prothromb Time International Ratio 1.0 (0.8-1.1) Micro Microbiology 08/10/19 Blood Culture - Preliminary, Resulted NO GROWTH AFTER 2 DAY 08/10. wrist GRAM STAIN RES 1 Final Comment Moderate amount of white blood cells. GRAM STAIN RES 2 Final No organisms seen Objective Assessment Cellulitis of right hand/septic wrist - s/p joint aspiration: cloudy, WBC > 6000, 08/10 - s/p wrist arthrotomy, I and D, 08/10 - Failed OP cipro Puncture wound (nail) right hand. Prediabetes HLD Plan Plan of Care Tetanus shot 08/08 Continue vancomycin and Zosyn Place mid line Case management for outpatient IV abx Monitor renal function closely Trough 8.4 f/u cultures D/w family at bedside Attending Co-Sign Attending Co-Sign The patient was seen and interviewed as well as examined at the bedside. The chart was reviewed. The case was discussed. Agree with the plan of care. PAULO RICHARD APRN Aug 12, 2019 11:29 HEIDE ROBERTSON MD Aug 12, 2019 15:39
[2019-08-12 15:00] VITALS: BP 126/75
--- NOTE | 2019-08-12 15:23 | NUR ---
SW consulted for Self Pay. Chart reviewed and discussed with RN. SW provided pt with Self pay resource guide. Pt accepted resources and verbalized understanding.
--- NOTE | 2019-08-12 15:54 | NUR ---
Alicia Nursing [employer] notified for patient need of Midline placement per Dr. Gamino's order, as patient is not going home today, will be done tomorrow as no PICC RN today per Alicia [employer].
--- NOTE | 2019-08-12 15:57 | NUR ---
Dr. Gamino notified Midline insertion will be done tomorrow. Patient verb. understanding POC.
--- NOTE | 2019-08-12 18:23 | NUR ---
Lo Barrera [facility]. [facility] Vasc. to insert Midline tonight. Consent witnessed. Patient verb. understanding POC.
[2019-08-12 19:00] VITALS: BP 116/74
[2019-08-12] MEDS: PSYLLIUM HUSK (SUGAR FREE) 1 PKT PACKET PO SCH (19:38)
[2019-08-12 23:00] VITALS: BP 129/73
[2019-08-13] MEDS: VANCOMYCIN PER PHARMACY MC PRN ×2 (00:06→15:01)
--- NOTE | 2019-08-13 00:07 | NUR ---
Pharmacy Vancomycin Dosing Note S:Consulted to monitor and dose vancomycin started 08/10/19. O:VILMA ESCALANTE is a 48 year old M with Cellulitis SEPTIC ARTHRITIS . Height: 5 feet, 7 inches Weight: 89.649895 kg Connell Body Weight: 66.10 Adjusted Body Weight: 75.94 Dosing Weight: Actual Other Antibiotics: ZOSYN 3.375G IV Q6HRS LABS: Last BUN: 16 Last Creatinine: 1 Creatinine Clearance: 98 mL/min Last WBC: 9.8 Last Procalcitonin: - Tmax (past 24 hours): 98.4 Microbiology: 08/11 08/10 BCX NGTD I/O: 1500/2 voids Drug Levels: Last Trough level: 17 on 08/12/19 at 2330 Last dose given 08/12/19 at 1550 Vancomycin Dosing: Loading Dose: 2000 mg x1 Dosing Weight: Actual Target Trough: 15-20 A: Based on: TROUGH P: 1. Continue Vancomycin 1500 mg IV q8h 2. Follow up Trough level IF NEEDED 3. Pharmacy will continue to monitor, follow and adjust therapy as needed. ALONA MCCORMICK RPH, 08/13/196 Signed: 08/13/19 at 6 by ALONA MCCORMICK RPH PHA
[2019-08-13] MEDS: VANCOMYCIN 1.5 GM in IV NORMAL SALINE 500ML BAG 500 ML IV SCH ×4 (00:18→23:57)
[2019-08-13 03:00] VITALS: BP 111/57
[2019-08-13 04:38] LABS: HEMATOCRIT 38.3 % (39.0-53.0); RED BLOOD COUNT 4.33 x10^6/uL (4.30-5.70); RED CELL DISTRIBUTION WIDTH 13.6 % (11.5-14.5); WHITE BLOOD COUNT 5.3 x10^3/uL (4.0-11.0)
[2019-08-13 04:48] LABS: PROTHROMBIN TIME PATIENT 12.9 SEC (11.7-14.0)
[2019-08-13 04:54] LABS: CALCIUM 9.2 mg/dL (8.5-10.1); CREATININE 1.1 mg/dL (0.7-1.3); GFR 72.1
[2019-08-13] MEDS: PIPERACILLIN/TAZOBACTAM 3.375 GM in IV NORMAL SALINE 50ML 50 ML IV SCH ×3 (05:30→18:12)
[2019-08-13 07:15] VITALS: BP 132/69
[2019-08-13] MEDS: POLYETHYLENE GLYCOL 3350 17 GM PACKET. PO SCH (07:22)
--- NOTE | 2019-08-13 08:07 | PDOC ---
PROGRESS NOTES Chief Complaint Chief Complaint Right wrist cellulitis and abscess, septic arthritis - s/p joint aspiration with WBC > 6K on arthrotomy and I&D on 08/10/2019, failed outpatient therapy on oral antibiotics (cipro) Obesity Prediabetes HLD Anemia History of Present Illness History of Present Illness Mr Hayward is a 48-year-old male who on 08/08 was working at home when a wooden board, with a nail sticking out, fell, puncturing his right hand. He says he wrapped his hand to stop the bleeding. A few hours later, he arrived to the ER with complaints of pain and swelling. X-ray at the time showed no acute fracture, dislocation or radiopaque foreign body. He was given a tetanus shot, prescription for Cipro and released home. Over the following 2 days, he says his hand became increasingly painful, swollen with limited range of motion despite antibiotics. He is now on vancomycin. Seen by ID and Orthopedic surgery in consultation. now s/p Right wrist arthrotomy irrigation debridement septic wrist joint on 08/10/19. He is tolerating PO pain medications well, still on IV antibiotics. No numbness or tingling in hand, it is slightly swollen. No diarrhea, no SOB or CP. He is asking to discharge soon. Plan: Will d/w ID antibiotic regimen - now with no growth on cultures, based on his septic joint and outpatient failure we will need final cultures prior to d/c. This seems definitive enough to me. Will try to arrange outpatient antibiotic IV Added bowel regimen for opioid induced constipation Vitals Vitals Vital Signs Date Time Temp Pulse Resp B/P (MAP) Pulse Ox O2 Delivery O2 Flow Rate FiO2 08/13/19 07:15 98.2 79 18 132/69 (90) 97 Room Air 98.2 Physical Exam Physical Exam GENERAL: Propped up in bed, alert, smiling HEENT: Pupils are equally round and reactive. Oropharynx pink and moist. NECK: Supple. LUNGS: Clear to auscultation. CARDIAC: S1 and S2. ABDOMEN: Soft and nontender. EXTREMITIES: Post-op dressing right hand dry, + wiggles fingers, warm, less swollen. SKIN: Warm to touch. No signs of rash. NEUROLOGIC: Alert, answering questions appropriately. PIV General: Alert, Oriented X3, Cooperative, No acute distress Heart: Regular rate, Normal S1, Normal S2 Lungs: Clear Abdomen: Normal bowel sounds, Soft, No tenderness, No hepatosplenomegaly, No masses Extremities: Other (RT hand markedly swoelln, cant nake a fist, tenderness and warm up to rt forarm near elbow, punctired dorsal site hand wound visible, no bleeding today) Labs LABS Laboratory Tests Test 08/12/19 23:30 08/13/19 04:30 Vancomycin Level Trough 17.0 mcg/mL (10.0-20.0) Vancomycin Last Dose Date Vancomycin Last Dose Time 1600 White Blood Count 5.3 x10^3/uL (4.0-11.0) Red Blood Count 4.33 x10^6/uL (4.30-5.70) Hemoglobin 13.0 g/dL (13.0-17.5) Hematocrit 38.3 % (39.0-53.0) Mean Corpuscular Volume 88 fL (79-100) Mean Corpuscular Hemoglobin 30 pg (25-35) Mean Corpuscular Hemoglobin Concent 34 g/dL (31-37) Red Cell Distribution Width 13.6 % (11.5-14.5) Platelet Count 247 x10^3/uL (140-400) Prothrombin Time 12.9 SEC (11.7-14.0) Prothromb Time International Ratio 1.0 (0.8-1.1) Sodium Level 141 mmol/L (136-145) Potassium Level 4.0 mmol/L (3.5-5.1) Chloride Level 105 mmol/L (98-107) Carbon Dioxide Level 27 mmol/L (21-32) Anion Gap 9 (6-14) Blood Urea Nitrogen 16 mg/dL (8-26) Creatinine 1.1 mg/dL (0.7-1.3) Estimated GFR (Cockcroft-Gault) 72.1 Glucose Level 98 mg/dL (70-99) Calcium Level 9.2 mg/dL (8.5-10.1) Assessment and Plan Assessmemt and Plan Problems Medical Problems: (1) Cellulitis of right hand Status: Acute Comment Review of Relevant I have reviewed the following items leena (where applicable) has been applied. Labs Laboratory Tests Test 08/11/19 23:05 08/12/19 03:14 08/12/19 23:30 08/13/19 04:30 Vancomycin Level Trough 8.4 mcg/mL (10.0-20.0) 17.0 mcg/mL (10.0-20.0) Vancomycin Last Dose Date 08/11/19 Vancomycin Last Dose Time 1130 1600 Prothrombin Time 12.9 SEC (11.7-14.0) 12.9 SEC (11.7-14.0) Prothromb Time International Ratio 1.0 (0.8-1.1) 1.0 (0.8-1.1) White Blood Count 5.3 x10^3/uL (4.0-11.0) Red Blood Count 4.33 x10^6/uL (4.30-5.70) Hemoglobin 13.0 g/dL (13.0-17.5) Hematocrit 38.3 % (39.0-53.0) Mean Corpuscular Volume 88 fL (79-100) Mean Corpuscular Hemoglobin 30 pg (25-35) Mean Corpuscular Hemoglobin Concent 34 g/dL (31-37) Red Cell Distribution Width 13.6 % (11.5-14.5) Platelet Count 247 x10^3/uL (140-400) Sodium Level 141 mmol/L (136-145) Potassium Level 4.0 mmol/L (3.5-5.1) Chloride Level 105 mmol/L (98-107) Carbon Dioxide Level 27 mmol/L (21-32) Anion Gap 9 (6-14) Blood Urea Nitrogen 16 mg/dL (8-26) Creatinine 1.1 mg/dL (0.7-1.3) Estimated GFR (Cockcroft-Gault) 72.1 Glucose Level 98 mg/dL (70-99) Calcium Level 9.2 mg/dL (8.5-10.1) Laboratory Tests Test 08/12/19 23:30 08/13/19 04:30 Vancomycin Level Trough 17.0 mcg/mL (10.0-20.0) Vancomycin Last Dose Date Vancomycin Last Dose Time 1600 White Blood Count 5.3 x10^3/uL (4.0-11.0) Red Blood Count 4.33 x10^6/uL (4.30-5.70) Hemoglobin 13.0 g/dL (13.0-17.5) Hematocrit 38.3 % (39.0-53.0) Mean Corpuscular Volume 88 fL (79-100) Mean Corpuscular Hemoglobin 30 pg (25-35) Mean Corpuscular Hemoglobin Concent 34 g/dL (31-37) Red Cell Distribution Width 13.6 % (11.5-14.5) Platelet Count 247 x10^3/uL (140-400) Prothrombin Time 12.9 SEC (11.7-14.0) Prothromb Time International Ratio 1.0 (0.8-1.1) Sodium Level 141 mmol/L (136-145) Potassium Level 4.0 mmol/L (3.5-5.1) Chloride Level 105 mmol/L (98-107) Carbon Dioxide Level 27 mmol/L (21-32) Anion Gap 9 (6-14) Blood Urea Nitrogen 16 mg/dL (8-26) Creatinine 1.1 mg/dL (0.7-1.3) Estimated GFR (Cockcroft-Gault) 72.1 Glucose Level 98 mg/dL (70-99) Calcium Level 9.2 mg/dL (8.5-10.1) Microbiology 08/10/19 Anaerobic/Aerobic Culture, Resulted Pending 08/10/19 Anaerobic Culture Result 1 (ANDREW), Resulted Pending 08/10/19 Aerobic Culture - Preliminary, Resulted 08/10/19 Aerobic Culture Result 1 (ANDREW) - Preliminary, Resulted 08/10/19 Gram Stain - Final, Resulted 08/10/19 Gram Stain Result 1 (ANDREW) - Final, Resulted 08/10/19 Gram Stain Result 2 (ANDREW) - Final, Resulted 08/10/19 Blood Culture - Preliminary, Resulted NO GROWTH AFTER 3 DAYS Medications Current Medications Fentanyl Citrate (Fentanyl 2ml Vial) 25 mcg PRN Q15MIN PRN IV PAIN GREATER THAN 3/10 Last administered on 08/10/19at 10:15; Start 08/10/19 at 07:15; Stop 08/11/19 at 07:14; Status DC Vancomycin HCl 250 ml @ 250 mls/hr 1X ONCE IV Last administered on 08/10/19at 08:00; Start 08/10/19 at 07:15; Stop 08/10/19 at 08:14; Status DC Acetaminophen/ Hydrocodone Bitart (Lortab 5/325) 1 tab PRN Q6HRS PRN PO MODERATE-SEVERE PAIN Last administered on 08/12/19at 13:59; Start 08/10/19 at 08:45 Morphine Sulfate (Morphine Sulfate) 2 mg PRN Q2HR PRN IV PAIN; Start 08/10/19 at 08:45; Stop 08/11/19 at 10:11; Status DC Acetaminophen (Tylenol) 500 mg PRN Q6HRS PRN PO MILD PAIN / TEMP Last administered on 08/12/19at 21:08; Start 08/10/19 at 08:45 Ondansetron HCl (Zofran) 4 mg PRN Q6HRS PRN IVP NAUSEA/VOMITING; Start 08/10/19 at 08:45 Vancomycin HCl (Vanco Per Pharmacy) 1 each PRN DAILY PRN MC SEE COMMENTS Last administered on 08/13/19at 00:06; Start 08/10/19 at 08:45 Clonidine HCl (Catapres) 0.1 mg PRN Q1HR PRN PO HYPERTENSION; Start 08/10/19 at 08:45 Vancomycin HCl 250 ml @ 250 mls/hr 1X ONCE IV Last administered on 08/10/19at 11:21; Start 08/10/19 at 09:00; Stop 08/10/19 at 09:59; Status DC Ondansetron HCl (Zofran) 4 mg PRN Q8HRS PRN IV NAUSEA/VOMITING; Start 08/10/19 at 09:00; Stop 08/11/19 at 08:59; Status DC Morphine Sulfate (Morphine Sulfate) 4 mg PRN Q2HR PRN IV PAIN; Start 08/10/19 at 09:00; Stop 08/11/19 at 08:59; Status DC Acetaminophen (Tylenol) 650 mg PRN Q4HRS PRN PO FEVER; Start 08/10/19 at 09:00; Stop 08/11/19 at 08:59; Status DC Sodium Chloride 1,000 ml @ 100 mls/hr 1X ONCE IV Last administered on 08/10/19at 14:05; Start 08/10/19 at 09:45; Stop 08/10/19 at 19:44; Status DC Propofol 20 ml @ As Directed STK-MED ONCE IV ; Start 08/10/19 at 10:34; Stop 08/10/19 at 10:34; Status DC Lidocaine HCl (Lidocaine Pf 2% Vial) 5 ml STK-MED ONCE .ROUTE ; Start 08/10/19 at 10:34; Stop 08/10/19 at 10:34; Status DC Fentanyl Citrate (Fentanyl 2ml Vial) 100 mcg STK-MED ONCE .ROUTE ; Start 08/10/19 at 10:34; Stop 08/10/19 at 10:34; Status DC Fentanyl Citrate (Fentanyl 2ml Vial) 25 mcg PRN Q5MIN PRN IV MILD PAIN 1-3; Start 08/10/19 at 10:45; Stop 08/11/19 at 10:44; Status DC Fentanyl Citrate (Fentanyl 2ml Vial) 50 mcg PRN Q5MIN PRN IV MODERATE TO SEVERE PAIN; Start 08/10/19 at 10:45; Stop 08/11/19 at 10:44; Status DC Morphine Sulfate (Morphine Sulfate) 1 mg PRN Q10MIN PRN IV SEVERE PAIN 7-10; Start 08/10/19 at 10:45; Stop 08/11/19 at 10:11; Status DC Ringer's Solution 1,000 ml @ 30 mls/hr Q24H IV Last administered on 08/10/19at 11:24; Start 08/10/19 at 10:35; Stop 08/10/19 at 22:34; Status DC Lidocaine HCl (Xylocaine-Mpf 1% 2ml Vial) 2 ml PRN 1X PRN ID PRIOR TO IV START; Start 08/10/19 at 10:45; Stop 08/11/19 at 10:44; Status DC Hydromorphone HCl (Dilaudid) 0.5 mg PRN Q10MIN PRN IV SEV PAIN, Second choice; Start 08/10/19 at 10:45; Stop 08/11/19 at 10:44; Status DC Prochlorperazine Edisylate (Compazine) 5 mg PACU PRN PRN IV NAUSEA, MRX1; Start 08/10/19 at 10:45; Stop 08/11/19 at 10:44; Status DC Piperacillin Sod/ Tazobactam Sod 3.375 gm/Sodium Chloride 50 ml @ 100 mls/hr Q6HRS IV Last administered on 08/13/19at 05:30; Start 08/10/19 at 12:00 Ondansetron HCl (Zofran) 4 mg STK-MED ONCE .ROUTE ; Start 08/10/19 at 11:37; Stop 08/10/19 at 11:38; Status DC Dexamethasone Sodium Phosphate (Decadron) 4 mg STK-MED ONCE .ROUTE ; Start 08/10/19 at 11:37; Stop 08/10/19 at 11:38; Status DC Sevoflurane (Ultane) 15 ml STK-MED ONCE IH ; Start 08/10/19 at 11:37; Stop 08/10/19 at 11:38; Status DC Vancomycin HCl 1.5 gm/Sodium Chloride 500 ml @ 250 mls/hr Q12H IV Last administered on 08/11/19at 10:47; Start 08/10/19 at 23:30; Stop 08/11/19 at 23:50; Status DC Vancomycin HCl (Vancomycin Trough Level) 1 each 1X ONCE MC Last administered on 08/11/19at 23:00; Start 08/11/19 at 23:00; Stop 08/11/19 at 23:01; Status DC Polyethylene Glycol (miraLAX PACKET) 17 gm DAILY PO Last administered on 08/12/19at 07:47; Start 08/11/19 at 11:00 Psyllium Hydrophilic Mucilloid (Metamucil Fiber Packet) 1 pkt QHS PO Last administered on 08/11/19at 21:18; Start 08/11/19 at 21:00 Lactobacillus Rhamnosus (Culturelle) 1 cap BID PO Last administered on 08/12/19at 21:07; Start 08/11/19 at 21:00 Vancomycin HCl 1.5 gm/Sodium Chloride 500 ml @ 250 mls/hr Q8H IV Last administered on 08/13/19at 00:18; Start 08/12/19 at 00:00 Vancomycin HCl (Vancomycin Trough Level) 1 each 1X ONCE MC Last administered on 08/12/19at 23:30; Start 08/12/19 at 23:30; Stop 08/12/19 at 23:31; Status DC Active Scripts Active Melvin 5-325 Tablet (Acetaminophen/Hydrocodone Bitart) 1 Each Tablet 1 Tab PO PRN Q6HRS PRN Cipro (Ciprofloxacin Hcl) 250 Mg Tablet 1 Tab PO BID Azithromycin Tablet (Azithromycin) 250 Mg Tablet 1 Pkg PO UD Vitals/I & O Vital Sign - Last 24 Hours 08/12/19 08/12/19 08/12/19 08/12/19 08:46 11:00 13:59 14:59 Temp 97.7 97.7 Pulse 68 Resp 18 18 18 18 B/P (MAP) 117/69 (85) Pulse Ox 95 O2 Delivery Room Air Room Air Room Air 08/12/19 08/12/19 08/12/19 08/12/19 15:00 16:45 19:00 19:00 Temp 98.1 97.6 98.4 98.1 97.6 98.4 Pulse 70 68 Resp 18 18 B/P (MAP) 126/75 (92) 116/74 (88) Pulse Ox 94 95 O2 Delivery Room Air Room Air Room Air 08/12/19 08/13/19 08/13/19 23:00 03:00 07:15 Temp 98.9 97.9 98.2 98.9 97.9 98.2 Pulse 70 68 79 Resp 18 18 18 B/P (MAP) 129/73 (91) 111/57 (75) 132/69 (90) Pulse Ox 95 95 97 O2 Delivery Room Air Room Air Room Air Intake and Output 08/12/19 08/12/19 08/13/19 15:00 23:00 07:00 Intake Total 850 ml 550 ml 960 ml Balance 850 ml 550 ml 960 ml WILMER PIERCE MD Aug 13, 2019 08:07
[2019-08-13] MEDS: LACTOBACILLUS RHAMNOSUS GG 1 CAPSULE. PO SCH ×2 (08:59→22:49)
[2019-08-13] MEDS: HYDROcodone/APAP 5/325MG 1 TAB TABLET PO PRN ×3 (10:01→22:49)
[2019-08-13 11:20] VITALS: BP 116/69
--- NOTE | 2019-08-13 12:27 | PDOC ---
Infectious Disease Note Subjective Subjective Doing alright No F/C/N/V/D ROS ROS per HPI Vital Sign Vital Signs Vital Signs Date Time Temp Pulse Resp B/P (MAP) Pulse Ox O2 Delivery O2 Flow Rate FiO2 08/13/19 11:20 98.4 62 18 116/69 (85) 98 Room Air 98.4 08/13/19 11:11 10.0 Physical Exam PHYSICAL EXAM GENERAL: Propped up in bed, alert, smiling HEENT: Pupils are equally round and reactive. Oropharynx pink and moist. NECK: Supple. LUNGS: Clear to auscultation. CARDIAC: S1 and S2. ABDOMEN: Soft and nontender. EXTREMITIES: Post-op dressing right hand dry, + wiggles fingers, warm, less swollen. SKIN: Warm to touch. No signs of rash. NEUROLOGIC: Alert, answering questions appropriately. LUE-midline (08/12) Right wrist and hand - no gross erythema/warmth trace edema - 2 sutures clean - NVI Labs Lab Laboratory Tests Test 08/12/19 23:30 08/13/19 04:30 Vancomycin Level Trough 17.0 mcg/mL (10.0-20.0) Vancomycin Last Dose Date [id number] Vancomycin Last Dose Time 1600 White Blood Count 5.3 x10^3/uL (4.0-11.0) Red Blood Count 4.33 x10^6/uL (4.30-5.70) Hemoglobin 13.0 g/dL (13.0-17.5) Hematocrit 38.3 % (39.0-53.0) Mean Corpuscular Volume 88 fL (79-100) Mean Corpuscular Hemoglobin 30 pg (25-35) Mean Corpuscular Hemoglobin Concent 34 g/dL (31-37) Red Cell Distribution Width 13.6 % (11.5-14.5) Platelet Count 247 x10^3/uL (140-400) Prothrombin Time 12.9 SEC (11.7-14.0) Prothromb Time International Ratio 1.0 (0.8-1.1) Sodium Level 141 mmol/L (136-145) Potassium Level 4.0 mmol/L (3.5-5.1) Chloride Level 105 mmol/L (98-107) Carbon Dioxide Level 27 mmol/L (21-32) Anion Gap 9 (6-14) Blood Urea Nitrogen 16 mg/dL (8-26) Creatinine 1.1 mg/dL (0.7-1.3) Estimated GFR (Cockcroft-Gault) 72.1 Glucose Level 98 mg/dL (70-99) Calcium Level 9.2 mg/dL (8.5-10.1) Micro Microbiology 08/10/19 Blood Culture - Preliminary, Resulted NO GROWTH AFTER 3 DAY 08/10. wrist GRAM STAIN RES 1 Final Comment Moderate amount of white blood cells. GRAM STAIN RES 2 Final No organisms seen ANAEROBIC RES 1 PENDING AEROBIC RES 1 Final Comment No growth in 36 - 48 hours. No growth in 56 - 72 hours. Objective Assessment Cellulitis of right hand/septic wrist - cuture neg so far - s/p joint aspiration: cloudy, WBC > 6000, 08/10 - s/p wrist arthrotomy, I and D, 08/10 - Failed OP cipro Puncture wound (nail) right hand. Prediabetes HLD Plan Plan of Care Tetanus shot 08/08 Continue vancomycin and Zosyn - will decide 08/14 on outpatient meds for discharge Case management for outpatient IV abx Monitor renal function closely Trough 8.4 f/u cultures D/w Dr. Alex D/w family D/w nursing Attending Co-Sign Attending Co-Sign The patient was seen and interviewed as well as examined at the bedside. The c mcgowan was reviewed. The case was discussed. Agree with the plan of care. PAULO RICHARD APRN Aug 13, 2019 12:27 HEIDE ROBERTSON MD Aug 13, 2019 16:49
[2019-08-13 15:08] VITALS: BP 123/74
--- NOTE | 2019-08-13 16:12 | NUR ---
DEX consulted for OP IV ABX needs. SW faxed referral to OP and left a VM to Pharmacy. Pt will need IV Rocephin and there are no programs for the drug. Admin notified for approval.
[2019-08-13 19:00] VITALS: BP 127/83
[2019-08-13] MEDS: PSYLLIUM HUSK (SUGAR FREE) 1 PKT PACKET PO SCH (21:00)
[2019-08-13 22:51] VITALS: BP 131/83
[2019-08-14] MEDS: PIPERACILLIN/TAZOBACTAM 3.375 GM in IV NORMAL SALINE 50ML 50 ML IV SCH ×3 (02:04→12:21)
[2019-08-14 03:00] VITALS: BP 113/74
[2019-08-14 07:26] VITALS: BP 130/89
[2019-08-14] MEDS: LACTOBACILLUS RHAMNOSUS GG 1 CAPSULE. PO SCH (08:04)
[2019-08-14] MEDS: VANCOMYCIN 1.5 GM in IV NORMAL SALINE 500ML BAG 500 ML IV SCH (08:05)
[2019-08-14] MEDS: POLYETHYLENE GLYCOL 3350 17 GM PACKET. PO SCH (08:13)
[2019-08-14 08:24] LABS: CREATININE 1.1 mg/dL (0.7-1.3); GFR 72.1
--- NOTE | 2019-08-14 08:42 | PDOC ---
PROGRESS NOTES Chief Complaint Chief Complaint Right wrist cellulitis and abscess, septic arthritis - s/p joint aspiration with WBC > 6K on arthrotomy and I&D on 08/10/2019, failed outpatient therapy on oral antibiotics (cipro) Obesity Prediabetes HLD Anemia History of Present Illness History of Present Illness Mr Hayward is a 48-year-old male who on 08/08 was working at home when a wooden board, with a nail sticking out, fell, puncturing his right hand. He says he wrapped his hand to stop the bleeding. A few hours later, he arrived to the ER with complaints of pain and swelling. X-ray at the time showed no acute fracture, dislocation or radiopaque foreign body. He was given a tetanus shot, prescription for Cipro and released home. Over the following 2 days, he says his hand became increasingly painful, swollen with limited range of motion despite antibiotics. He is now on vancomycin. Seen by ID and Orthopedic surgery in consultation. now s/p Right wrist arthrotomy irrigation debridement septic wrist joint on 08/10/19. He is tolerating PO pain medications well, still on IV antibiotics. No numbness or tingling in hand, it is slightly swollen. No diarrhea, no SOB or CP. He is asking to discharge soon. Plan: Will d/w ID antibiotic regimen - now with no growth on cultures, based on his septic joint and outpatient failure we will need final cultures prior to d/c. This seems definitive enough to me. Will give dapto per ID recommendations Added bowel regimen for opioid induced constipation Vitals Vitals Vital Signs Date Time Temp Pulse Resp B/P (MAP) Pulse Ox O2 Delivery O2 Flow Rate FiO2 08/14/19 07:26 97.9 57 18 130/89 (103) 97 Room Air 97.9 08/14/19 03:00 10.0 Physical Exam Physical Exam GENERAL: Propped up in bed, alert, smiling HEENT: Pupils are equally round and reactive. Oropharynx pink and moist. NECK: Supple. LUNGS: Clear to auscultation. CARDIAC: S1 and S2. ABDOMEN: Soft and nontender. EXTREMITIES: Post-op dressing right hand dry, + wiggles fingers, warm, less swollen. SKIN: Warm to touch. No signs of rash. NEUROLOGIC: Alert, answering questions appropriately. LUE-midline (08/12) Right wrist and hand - no gross erythema/warmth trace edema - 2 sutures clean - NVI General: Alert, Oriented X3, Cooperative, No acute distress Heart: Regular rate, Normal S1, Normal S2 Lungs: Clear Abdomen: Normal bowel sounds, Soft, No tenderness, No hepatosplenomegaly, No masses Extremities: Other (RT hand markedly swoelln, cant nake a fist, tenderness and warm up to rt forarm near elbow, punctired dorsal site hand wound visible, no bleeding today) Labs LABS Laboratory Tests Test 08/14/19 05:20 Creatinine 1.1 mg/dL (0.7-1.3) Estimated GFR (Cockcroft-Gault) 72.1 Assessment and Plan Assessmemt and Plan Problems Medical Problems: (1) Cellulitis of right hand Status: Acute Comment Review of Relevant I have reviewed the following items leena (where applicable) has been applied. Labs Laboratory Tests Test 08/12/19 23:30 08/13/19 04:30 08/14/19 05:20 Vancomycin Level Trough 17.0 mcg/mL (10.0-20.0) Vancomycin Last Dose Date Vancomycin Last Dose Time 1600 White Blood Count 5.3 x10^3/uL (4.0-11.0) Red Blood Count 4.33 x10^6/uL (4.30-5.70) Hemoglobin 13.0 g/dL (13.0-17.5) Hematocrit 38.3 % (39.0-53.0) Mean Corpuscular Volume 88 fL (79-100) Mean Corpuscular Hemoglobin 30 pg (25-35) Mean Corpuscular Hemoglobin Concent 34 g/dL (31-37) Red Cell Distribution Width 13.6 % (11.5-14.5) Platelet Count 247 x10^3/uL (140-400) Prothrombin Time 12.9 SEC (11.7-14.0) Prothromb Time International Ratio 1.0 (0.8-1.1) Sodium Level 141 mmol/L (136-145) Potassium Level 4.0 mmol/L (3.5-5.1) Chloride Level 105 mmol/L (98-107) Carbon Dioxide Level 27 mmol/L (21-32) Anion Gap 9 (6-14) Blood Urea Nitrogen 16 mg/dL (8-26) Creatinine 1.1 mg/dL (0.7-1.3) 1.1 mg/dL (0.7-1.3) Estimated GFR (Cockcroft-Gault) 72.1 72.1 Glucose Level 98 mg/dL (70-99) Calcium Level 9.2 mg/dL (8.5-10.1) Laboratory Tests Test 08/14/19 05:20 Creatinine 1.1 mg/dL (0.7-1.3) Estimated GFR (Cockcroft-Gault) 72.1 Microbiology 08/10/19 Anaerobic/Aerobic Culture - Preliminary, Resulted 08/10/19 Anaerobic Culture Result 1 (ANDREW) - Preliminary, Resulted 08/10/19 Aerobic Culture - Final, Resulted 08/10/19 Aerobic Culture Result 1 (ANDREW) - Final, Resulted 08/10/19 Gram Stain - Final, Resulted 08/10/19 Gram Stain Result 1 (ANDREW) - Final, Resulted 08/10/19 Gram Stain Result 2 (ANDREW) - Final, Resulted 08/10/19 Blood Culture - Preliminary, Resulted NO GROWTH AFTER 4 DAYS Medications Current Medications Fentanyl Citrate (Fentanyl 2ml Vial) 25 mcg PRN Q15MIN PRN IV PAIN GREATER THAN 3/10 Last administered on 08/10/19at 10:15; Start 08/10/19 at 07:15; Stop 08/11/19 at 07:14; Status DC Vancomycin HCl 250 ml @ 250 mls/hr 1X ONCE IV Last administered on 08/10/19at 08:00; Start 08/10/19 at 07:15; Stop 08/10/19 at 08:14; Status DC Acetaminophen/ Hydrocodone Bitart (Lortab 5/325) 1 tab PRN Q6HRS PRN PO MODERATE-SEVERE PAIN Last administered on 08/13/19at 22:49; Start 08/10/19 at 08:45 Morphine Sulfate (Morphine Sulfate) 2 mg PRN Q2HR PRN IV PAIN; Start 08/10/19 at 08:45; Stop 08/11/19 at 10:11; Status DC Acetaminophen (Tylenol) 500 mg PRN Q6HRS PRN PO MILD PAIN / TEMP Last administered on 08/12/19at 21:08; Start 08/10/19 at 08:45 Ondansetron HCl (Zofran) 4 mg PRN Q6HRS PRN IVP NAUSEA/VOMITING; Start 08/10/19 at 08:45 Vancomycin HCl (Vanco Per Pharmacy) 1 each PRN DAILY PRN MC SEE COMMENTS Last administered on 08/13/19at 15:01; Start 08/10/19 at 08:45 Clonidine HCl (Catapres) 0.1 mg PRN Q1HR PRN PO HYPERTENSION; Start 08/10/19 at 08:45 Vancomycin HCl 250 ml @ 250 mls/hr 1X ONCE IV Last administered on 08/10/19at 11:21; Start 08/10/19 at 09:00; Stop 08/10/19 at 09:59; Status DC Ondansetron HCl (Zofran) 4 mg PRN Q8HRS PRN IV NAUSEA/VOMITING; Start 08/10/19 at 09:00; Stop 08/11/19 at 08:59; Status DC Morphine Sulfate (Morphine Sulfate) 4 mg PRN Q2HR PRN IV PAIN; Start 08/10/19 at 09:00; Stop 08/11/19 at 08:59; Status DC Acetaminophen (Tylenol) 650 mg PRN Q4HRS PRN PO FEVER; Start 08/10/19 at 09:00; Stop 08/11/19 at 08:59; Status DC Sodium Chloride 1,000 ml @ 100 mls/hr 1X ONCE IV Last administered on 08/10/19at 14:05; Start 08/10/19 at 09:45; Stop 08/10/19 at 19:44; Status DC Propofol 20 ml @ As Directed STK-MED ONCE IV ; Start 08/10/19 at 10:34; Stop 08/10/19 at 10:34; Status DC Lidocaine HCl (Lidocaine Pf 2% Vial) 5 ml STK-MED ONCE .ROUTE ; Start 08/10/19 at 10:34; Stop 08/10/19 at 10:34; Status DC Fentanyl Citrate (Fentanyl 2ml Vial) 100 mcg STK-MED ONCE .ROUTE ; Start 08/10/19 at 10:34; Stop 08/10/19 at 10:34; Status DC Fentanyl Citrate (Fentanyl 2ml Vial) 25 mcg PRN Q5MIN PRN IV MILD PAIN 1-3; Start 08/10/19 at 10:45; Stop 08/11/19 at 10:44; Status DC Fentanyl Citrate (Fentanyl 2ml Vial) 50 mcg PRN Q5MIN PRN IV MODERATE TO SEVERE PAIN; Start 08/10/19 at 10:45; Stop 08/11/19 at 10:44; Status DC Morphine Sulfate (Morphine Sulfate) 1 mg PRN Q10MIN PRN IV SEVERE PAIN 7-10; Start 08/10/19 at 10:45; Stop 08/11/19 at 10:11; Status DC Ringer's Solution 1,000 ml @ 30 mls/hr Q24H IV Last administered on 08/10/19at 11:24; Start 08/10/19 at 10:35; Stop 08/10/19 at 22:34; Status DC Lidocaine HCl (Xylocaine-Mpf 1% 2ml Vial) 2 ml PRN 1X PRN ID PRIOR TO IV START; Start 08/10/19 at 10:45; Stop 08/11/19 at 10:44; Status DC Hydromorphone HCl (Dilaudid) 0.5 mg PRN Q10MIN PRN IV SEV PAIN, Second choice; Start 08/10/19 at 10:45; Stop 08/11/19 at 10:44; Status DC Prochlorperazine Edisylate (Compazine) 5 mg PACU PRN PRN IV NAUSEA, MRX1; Start 08/10/19 at 10:45; Stop 08/11/19 at 10:44; Status DC Piperacillin Sod/ Tazobactam Sod 3.375 gm/Sodium Chloride 50 ml @ 100 mls/hr Q6HRS IV Last administered on 08/14/19at 05:24; Start 08/10/19 at 12:00 Ondansetron HCl (Zofran) 4 mg STK-MED ONCE .ROUTE ; Start 08/10/19 at 11:37; Stop 08/10/19 at 11:38; Status DC Dexamethasone Sodium Phosphate (Decadron) 4 mg STK-MED ONCE .ROUTE ; Start 08/10/19 at 11:37; Stop 08/10/19 at 11:38; Status DC Sevoflurane (Ultane) 15 ml STK-MED ONCE IH ; Start 08/10/19 at 11:37; Stop 08/10/19 at 11:38; Status DC Vancomycin HCl 1.5 gm/Sodium Chloride 500 ml @ 250 mls/hr Q12H IV Last administered on 08/11/19at 10:47; Start 08/10/19 at 23:30; Stop 08/11/19 at 23:50; Status DC Vancomycin HCl (Vancomycin Trough Level) 1 each 1X ONCE MC Last administered on 08/11/19at 23:00; Start 08/11/19 at 23:00; Stop 08/11/19 at 23:01; Status DC Polyethylene Glycol (miraLAX PACKET) 17 gm DAILY PO Last administered on 08/12/19 07:47; Start 08/11/19 at 11:00 Psyllium Hydrophilic Mucilloid (Metamucil Fiber Packet) 1 pkt QHS PO Last administered on 08/11/19 21:18; Start 08/11/19 at 21:00 Lactobacillus Rhamnosus (Culturelle) 1 cap BID PO Last administered on 08/14/19 08:04; Start 08/11/19 at 21:00 Vancomycin HCl 1.5 gm/Sodium Chloride 500 ml @ 250 mls/hr Q8H IV Last administered on 08/14/19 08:05; Start 08/12/19 at 00:00 Vancomycin HCl (Vancomycin Trough Level) 1 each 1X ONCE MC Last administered on 08/12/19at 23:30; Start 08/12/19 at 23:30; Stop 08/12/19 at 23:31; Status DC Active Scripts Active [place] 5-325 Tablet (Acetaminophen/Hydrocodone Bitart) 1 Each Tablet 1 Tab PO PRN Q6HRS PRN Cipro (Ciprofloxacin Hcl) 250 Mg Tablet 1 Tab PO BID Azithromycin Tablet (Azithromycin) 250 Mg Tablet 1 Pkg PO UD Vitals/I & O Vital Sign - Last 24 Hours 08/13/19 08/13/19 08/13/19 08/13/19 11:11 11:20 15:08 16:20 Temp 98.4 98.0 98.4 98.0 Pulse 62 60 Resp 18 18 B/P (MAP) 116/69 (85) 123/74 (90) Pulse Ox 97 98 97 97 O2 Delivery Room Air Room Air Room Air Room Air O2 Flow Rate 10.0 10.0 08/13/19 08/13/19 08/13/19 08/13/19 19:00 20:05 22:49 22:51 Temp 97.9 98.0 97.9 98.0 Pulse 65 63 Resp 15 18 B/P (MAP) 127/83 (98) 131/83 (99) Pulse Ox 95 95 O2 Delivery Room Air Room Air Room Air Room Air O2 Flow Rate 10.0 10.0 08/13/19 08/14/19 08/14/19 23:49 03:00 07:26 Temp 98.2 97.9 98.2 97.9 Pulse 54 57 Resp 18 18 B/P (MAP) 113/74 (87) 130/89 (103) Pulse Ox 97 97 O2 Delivery Room Air Room Air Room Air O2 Flow Rate 10.0 Intake and Output 08/13/19 08/13/19 08/14/19 15:00 23:00 07:00 Intake Total 720 ml 280 ml 350 ml Balance 720 ml 280 ml 350 ml WILMER PIERCE MD Aug 14, 2019 08:42
--- NOTE | 2019-08-14 11:00 | PDOC ---
Infectious Disease Note Subjective Subjective Comfortable Hand feels better Swelling going down, improved ROM - less pain No F/C/N/V ROS ROS per HPI Vital Sign Vital Signs Vital Signs Date Time Temp Pulse Resp B/P (MAP) Pulse Ox O2 Delivery O2 Flow Rate FiO2 08/14/19 07:26 97.9 57 18 130/89 (103) 97 Room Air 97.9 08/14/19 03:00 10.0 Physical Exam PHYSICAL EXAM GENERAL: Propped up in bed, alert, smiling HEENT: Pupils are equally round and reactive. Oropharynx pink and moist. NECK: Supple. LUNGS: Clear to auscultation. CARDIAC: S1 and S2. ABDOMEN: Soft and nontender. EXTREMITIES: Right hand bandaged, improved ROM wrist, NVI SKIN: Warm to touch. No signs of rash. NEUROLOGIC: Alert, answering questions appropriately. LUE-midline (08/12) Labs Lab Laboratory Tests Test 08/14/19 05:20 Creatinine 1.1 mg/dL (0.7-1.3) Estimated GFR (Cockcroft-Gault) 72.1 Micro Microbiology 08/10/19 Blood Culture - Preliminary, Resulted NO GROWTH AFTER 4 DAY 08/10. wrist GRAM STAIN RES 1 Final Comment Moderate amount of white blood cells. GRAM STAIN RES 2 Final No organisms seen ANAEROBIC RES 1 Preliminary Comment No anaerobes recovered in 48 hours. AEROBIC CULT Final Preliminary report Final report AEROBIC RES 1 Final Comment No growth in 36 - 48 hours. No growth in 56 - 72 hours. Objective Assessment Cellulitis of right hand/septic wrist - cuture neg - s/p joint aspiration: cloudy, WBC > 6000, 08/10 - s/p wrist arthrotomy, I and D, 08/10 - Failed OP cipro Puncture wound (nail) right hand. Prediabetes HLD Plan Plan of Care Tetanus shot 08/08 Continue vancomycin and Zosyn for now, further rec to follow for outpatient Case management for outpatient IV abx Monitor renal function closely Trough 17.0 D/w Dr. Alex D/w family at bedside D/c Vanc and zosyn Dose Daptomycin for 16 days Rx written Labs Q Sunday CBC/sed rate/CPK/Cr fax to [phone] F/u 2 weeks ID office Attending Co-Sign Attending Co-Sign The patient was seen and interviewed as well as examined at the bedside. The chart was reviewed. The case was discussed. Agree with the plan of care. PAULO RICHARD APRN Aug 14, 2019 11:00 HEIDE ROBERTSON MD Aug 14, 2019 14:15
[2019-08-14 11:05] VITALS: BP 132/72
[2019-08-14] MEDS: VANCOMYCIN PER PHARMACY MC PRN (12:12)
[2019-08-14] MEDS: HYDROcodone/APAP 5/325MG 1 TAB TABLET PO PRN (12:21)
[2019-08-14 14:59] VITALS: BP 129/76
[2019-08-14] MEDS ORDERED: DAPTOmycin (GENERIC) IVPB 540 MG in IV NORMAL SALINE 50ML 50 ML IV SCH (15:00)
--- NOTE | 2019-08-14 16:21 | PDOC3 ---
Discharge Summary Visit Information Date of Admission: Aug 10, 2019 Date of Discharge: Aug 14, 2019 Admitting Diagnosis: Cellulitis and abscess of right hand Final Diagnosis Problems Medical Problems: (1) Cellulitis of right hand Status: Acute Brief Hospital Course Allergies Allergies Coded Allergies Type Severity Reaction Last Updated Verified No Known Drug Allergies 11/08/18 No Vital Signs Vital Signs Date Time Temp Pulse Resp B/P (MAP) Pulse Ox O2 Delivery O2 Flow Rate FiO2 08/14/19 14:59 97.1 61 20 129/76 (93) 97 Room Air 97.1 08/14/19 13:37 10.0 Lab Results Laboratory Tests Test 08/12/19 23:30 08/13/19 04:30 08/14/19 05:20 Vancomycin Level Trough 17.0 mcg/mL (10.0-20.0) Vancomycin Last Dose Date [id number] Vancomycin Last Dose Time 1600 White Blood Count 5.3 x10^3/uL (4.0-11.0) Red Blood Count 4.33 x10^6/uL (4.30-5.70) Hemoglobin 13.0 g/dL (13.0-17.5) Hematocrit 38.3 % (39.0-53.0) Mean Corpuscular Volume 88 fL (79-100) Mean Corpuscular Hemoglobin 30 pg (25-35) Mean Corpuscular Hemoglobin Concent 34 g/dL (31-37) Red Cell Distribution Width 13.6 % (11.5-14.5) Platelet Count 247 x10^3/uL (140-400) Prothrombin Time 12.9 SEC (11.7-14.0) Prothromb Time International Ratio 1.0 (0.8-1.1) Sodium Level 141 mmol/L (136-145) Potassium Level 4.0 mmol/L (3.5-5.1) Chloride Level 105 mmol/L (98-107) Carbon Dioxide Level 27 mmol/L (21-32) Anion Gap 9 (6-14) Blood Urea Nitrogen 16 mg/dL (8-26) Creatinine 1.1 mg/dL (0.7-1.3) 1.1 mg/dL (0.7-1.3) Estimated GFR (Cockcroft-Gault) 72.1 72.1 Glucose Level 98 mg/dL (70-99) Calcium Level 9.2 mg/dL (8.5-10.1) Laboratory Tests Test 08/14/19 05:20 Creatinine 1.1 mg/dL (0.7-1.3) Estimated GFR (Cockcroft-Gault) 72.1 Brief Hospital Course Mr Hayward is a 48-year-old male who on 08/08 was working at home when a wooden board, with a nail sticking out, fell, puncturing his right hand. He says he wrapped his hand to stop the bleeding. A few hours later, he arrived to the ER with complaints of pain and swelling. X-ray at the time showed no acute fracture, dislocation or radiopaque foreign body. He was given a tetanus shot, prescription for Cipro and released home. Over the following 2 days, he says his hand became increasingly painful, swollen with limited range of motion despite antibiotics. He is now on vancomycin. Seen by ID and Orthopedic surgery in consultation. now s/p Right wrist arthrotomy irrigation debridement septic wrist joint on 08/10/19. He is tolerating PO pain medications well, still on IV antibiotics. No numbness or tingling in hand, it is slightly swollen. No diarrhea, no SOB or CP. He is transitioning to daptomycin for the next 16 days and has CBC, ESR, CRP, CMP and ID f/u and ortho f/u. Assessment: Right wrist cellulitis and abscess, septic arthritis - s/p joint aspiration with WBC > 6K on arthrotomy and I&D on 08/10/2019, failed outpatient therapy on oral antibiotics (cipro) Obesity Prediabetes HLD Anemia Plan: Will d/w ID antibiotic regimen - now with no growth on cultures, based on his septic joint and outpatient failure we will need final cultures prior to d/c. This seems definitive enough to me. Will give dapto per ID recommendations Added bowel regimen for opioid induced constipation Greater than 30 minutes spent on d/c Discharge Information Condition at Discharge: Improved Follow Up: Weeks (2) Disposition/Orders: D/C to Home Scheduled PRN Hydrocodone/Apap 5-325 ([place] 5-325 Tablet) 1 Each Tablet, 1 TAB PO PRN Q6HRS PRN for PAIN, #10 Ref 0 Prescribed by: RUBI HANNA MD on 08/08/19 2277 Last Action: Continued on 08/10/19 4488 by GIAN SANDERSON Discontinued Medications Azithromycin (Azithromycin Tablet) 250 Mg Tablet, 1 PKG PO UD, #6 Prescribed by: TYSHAWN POOL APRN on 11/08/18 1546 Last Action: HELD on 08/10/19843 by GIAN SANDERSON Ciprofloxacin Hcl (Cipro) 250 Mg Tablet, 1 TAB PO BID for infection, #14 Prescribed by: RUBI HANNA MD on 08/08/19 2259 Last Action: HELD on 08/10/19843 by WILMER OWENS MD Aug 14, 2019 16:21
--- NOTE | 2019-08-14 16:24 | NUR ---
SW arranged OP IV Dapto with OP clinic. Pt is scheduled to come at 1000 tomorrow. Admin and Pharmacy notified. D/w ID and Physician. Pt agreeable with plans.
--- NOTE | 2019-08-14 18:37 | NUR ---
Discharge Note: [facility] Discharge instructions and discharge home medications reviewed with Patient and a copy given. All questions have been answered and understanding verbalized. The following instructions and handouts were given: Cellulitis Discontinued lines and drains: intact. Midline in place to LUE Patient discharged to Home or Self Care with Spouse via Ambulated walked off unit by MAGDA
== END 2019-08-14 18:43 | disposition home or self-care (01) | DRG 982 ==
LOC: ER 06:45 → 5 SOUTH 08:53
PROVIDERS: ADMIT Internal Medicine; ATTEND Internal Medicine
PROC: 0R9N3ZZ Drainage of Right Wrist Joint, Percutaneous Approach (ICD-10-PCS; 2019-08-10)
PROC: 0MD Bursae and Ligaments, Extraction (ICD-10-PCS; principal; 2019-08-10 12:00)
DX: S61.531A Puncture wound without foreign body of right wrist, initial encounter (principal); L02.511 Cutaneous abscess of right hand; L03.113 Cellulitis of right upper limb; M00.9 Pyogenic arthritis, unspecified; E78.5 Hyperlipidemia, unspecified; D64.9 Anemia, unspecified; E66.9 Obesity, unspecified; R73.03 Prediabetes; Z68.31 Body mass index [BMI] 31.0-31.9, adult; W45.0XXA Nail entering through skin, initial encounter; Y93.89 Activity, other specified; Y92.89 Other specified places as the place of occurrence of the external cause; Y99.8 Other external cause status; Z83.3 Family history of diabetes mellitus
CPT/HCPCS: 36415; 51702; 80048; 80053; 80202; 82565; 85025; 85027; 85610; 85651; 87040; 87071; 87075; 89050; 96365; 96366; 96374; 96375; 96376; A7015; J0878; J1100; J2001; J2405; J2543; J2704; J3010; J3370; J7030; J7040; J7120; 99285-25; G0378

== ENCOUNTER 2019-09-03 10:51 | Emergency (ER) | payer OTHER ==
[~2019-09-03] VITALS: Ht 170.2 cm; Wt 89.8 kg
--- NOTE | 2019-09-03 11:18 | PHYS DOC ---
Past Medical History Past Medical History: No Pertinent History Past Surgical History: No Surgical History Alcohol Use: None Drug Use: None Adult General Chief Complaint Chief Complaint: HAND PROBLEM HPI HPI Patient is a 48 year old male presents with right hand pain and swelling this been ongoing since August 08 after a nail went through his hand. The patient was seen on August 14, admitted to the hospital and had a surgery to wash out the hand and then was seen by infectious disease and put on a 16 day course of daptomycin. The patient states he was seen on August 30 and everything looked good at that time. He states since the his hand has started to swell again and become hot to the touch. Review of Systems Review of Systems Constitutional: Denies fever or chills [] Eyes: Denies change in visual acuity, redness, or eye pain [] HENT: Denies nasal congestion or sore throat [] Respiratory: Denies cough or shortness of breath [] Cardiovascular: No additional information not addressed in HPI [] GI: Denies abdominal pain, nausea, vomiting, bloody stools or diarrhea [] : Denies dysuria or hematuria [] Musculoskeletal: Reports R hand pain and edema. Integument: Denies rash or skin lesions [] Neurologic: Denies headache, focal weakness or sensory changes [] Endocrine: Denies polyuria or polydipsia [] Complete systems were reviewed and found to be within normal limits, except as documented in this note. Current Medications Current Medications Current Medications Medications (Trade) Dose Ordered Sig/Tim Start Time Stop Time Status Last Admin Dose Admin Clindamycin Phosphate 50 ml @ 100 mls/hr 1X ONCE 09/03/19 12:00 09/03/19 12:29 DC 09/03/19 12:31 100 MLS/HR Allergies Allergies Allergies Coded Allergies Type Severity Reaction Last Updated Verified No Known Drug Allergies 08/30/19 No Physical Exam Physical Exam Constitutional: Well developed, well nourished, no acute distress, non-toxic appearance. [] HENT: Normocephalic, atraumatic, bilateral external ears normal, oropharynx moist, no oral exudates, nose normal. [] Eyes: PERRLA, EOMI, conjunctiva normal, no discharge. [] Neck: Normal range of motion, no tenderness, supple, no stridor. [] Cardiovascular:Heart rate regular rhythm, no murmur [] Lungs & Thorax: Bilateral breath sounds clear to auscultation [] Abdomen: Bowel sounds normal, soft, no tenderness, no masses, no pulsatile masses. [] Skin: R hand is hot to touch, and has edema. Back: No tenderness, no CVA tenderness. [] Extremities: No tenderness, no cyanosis, no clubbing, ROM intact, no edema. [] Neurologic: Alert and oriented X 3, normal motor function, normal sensory function, no focal deficits noted. [] Psychologic: Affect normal, judgement normal, mood normal. [] Current Patient Data Vital Signs Vital Signs Date Time Temp Pulse Resp B/P (MAP) Pulse Ox O2 Delivery O2 Flow Rate FiO2 09/03/19 11:01 98.0 73 16 138/78 (98) 97 Room Air 98.0 Lab Values Laboratory Tests Test 09/03/19 11:26 White Blood Count 5.4 x10^3/uL (4.0-11.0) Red Blood Count 4.73 x10^6/uL (4.30-5.70) Hemoglobin 13.9 g/dL (13.0-17.5) Hematocrit 41.4 % (39.0-53.0) Mean Corpuscular Volume 87 fL (79-100) Mean Corpuscular Hemoglobin 29 pg (25-35) Mean Corpuscular Hemoglobin Concent 34 g/dL (31-37) Red Cell Distribution Width 13.0 % (11.5-14.5) Platelet Count 278 x10^3/uL (140-400) Neutrophils (%) (Auto) 58 % (31-73) Lymphocytes (%) (Auto) 32 % (24-48) Monocytes (%) (Auto) 7 % (0-9) Eosinophils (%) (Auto) 2 % (0-3) Basophils (%) (Auto) 1 % (0-3) Neutrophils # (Auto) 3.1 x10^3/uL (1.8-7.7) Lymphocytes # (Auto) 1.7 x10^3/uL (1.0-4.8) Monocytes # (Auto) 0.4 x10^3/uL (0.0-1.1) Eosinophils # (Auto) 0.1 x10^3/uL (0.0-0.7) Basophils # (Auto) 0.0 x10^3/uL (0.0-0.2) Erythrocyte Sedimentation Rate 1 (0-15) Sodium Level 144 mmol/L (136-145) Potassium Level 3.9 mmol/L (3.5-5.1) Chloride Level 105 mmol/L (98-107) Carbon Dioxide Level 29 mmol/L (21-32) Anion Gap 10 (6-14) Blood Urea Nitrogen 26 mg/dL (8-26) Creatinine 1.0 mg/dL (0.7-1.3) Estimated GFR (Cockcroft-Gault) 80.4 BUN/Creatinine Ratio 26 (6-20) H Glucose Level 88 mg/dL (70-99) Lactic Acid Level 1.5 mmol/L (0.4-2.0) Calcium Level 9.3 mg/dL (8.5-10.1) Total Bilirubin 0.3 mg/dL (0.2-1.0) Aspartate Amino Transferase (AST) 27 U/L (15-37) Alanine Aminotransferase (ALT) 48 U/L (16-63) Alkaline Phosphatase 60 U/L (46-116) Total Protein 8.0 g/dL (6.4-8.2) Albumin 4.1 g/dL (3.4-5.0) Albumin/Globulin Ratio 1.1 (1.0-1.7) Laboratory Tests 09/03/19 11:26 Laboratory Tests 09/03/19 11:26 EKG EKG [] Radiology/Procedures Radiology/Procedures [] Course & Med Decision Making Course & Med Decision Making Pertinent Labs and Imaging studies reviewed. (See chart for details) Will get lab work, x-ray, and give IV antibiotics. Labs are unremarkable. X-ray is unremarkable. Discussed with patient and he prefers to see ID and Ortho outpatient. Offered admission but he declined. Dragon Disclaimer Dragon Disclaimer This electronic medical record was generated, in whole or in part, using a voice recognition dictation system. Departure Departure Impression: Primary Impression: Cellulitis Disposition: 01 HOME, SELF-CARE Condition: STABLE Referrals: NO PCP (PCP) HEIDE ROBERTSON MD, TIMOTHY J MD Patient Instructions: Cellulitis Additional Instructions: Thank you for visiting [facility]. We appreciate you trusting us with your care. If any additional problems come up don't hesitate to return to visit us. Please follow up with your primary care provider so they can plan additional care if needed and know about the problem that you had. If symptoms worsen come back to the Emergency Department. Any concerning symptoms that start such as chest pain, shortness of air, weakness or numbness on one side of the body, running high fevers or any other concerning symptoms return to the ER. You have been prescribed an antibiotic today to help fight your infection. Please take all of the antibiotic as directed. If after 48 hours the infection is not improving, please return for more care. If the infection worsens, return to ER for additional care. Please follow up with I/D and Ortho. If gets worse please return to ER or if you start running a fever return to hospital. Scripts Clindamycin Hcl (CLINDAMYCIN HCL) 150 Mg Capsule 450 MG PO QID for 7 Days, #84 CAP Prov: MARLIN OLSON APRN 09/03/19 Problem Qualifiers Primary Impression: Cellulitis Site of cellulitis: extremity Site of cellulitis of extremity: upper extremity Laterality: right Qualified Codes: L03.113 - Cellulitis of right upper limb MARLIN OLSON APRN Sep 03, 2019 11:18
[2019-09-03 11:50] LABS: BASO % 1 % (0-3); EOS # 0.1 x10^3/uL (0.0-0.7); EOS % 2 % (0-3); HEMATOCRIT 41.4 % (39.0-53.0); HEMOGLOBIN 13.9 g/dL (13.0-17.5); LYMPH # 1.7 x10^3/uL (1.0-4.8); LYMPH % 32 % (24-48); MEAN CORPUSCULAR HEMOGLOBIN 29 pg (25-35); MEAN CORPUSCULAR HGB CONC 34 g/dL (31-37); MEAN CORPUSCULAR VOLUME 87 fL (79-100); MONO # 0.4 x10^3/uL (0.0-1.1); MONO % 7 % (0-9); NEUT # 3.1 x10^3/uL (1.8-7.7); NEUT % 58 % (31-73); PLATELET COUNT 278 x10^3/uL (140-400); RED BLOOD COUNT 4.73 x10^6/uL (4.30-5.70); WHITE BLOOD COUNT 5.4 x10^3/uL (4.0-11.0)
[2019-09-03 11:55] LABS: CALCIUM 9.3 mg/dL (8.5-10.1); GFR 80.4; POTASSIUM 3.9 mmol/L (3.5-5.1)
[2019-09-03] MEDS ORDERED: CLINDAMYCIN 600MG PREMIX 50 ML IV ONE (12:00)
[2019-09-03 12:01] LABS: ALBUMIN 4.1 g/dL (3.4-5.0); ALBUMIN/GLOBULIN RATIO 1.1 (1.0-1.7); TOTAL BILIRUBIN 0.3 mg/dL (0.2-1.0)
--- NOTE | 2019-09-03 12:07 | RAD ---
3 views of right hand without comparison for right hand pain, swelling, previous injury. FINDINGS: There is no evidence of acute fracture or dislocation. Mild deformity of the head of the first metacarpal is stable, and there relate to distant injury. No unexpected radiopaque foreign bodies are seen. No significant degenerative changes are evident. IMPRESSION: No acute findings. Electronically signed by: Cheo Ordoñez MD (09/03/2019 12:04 PM) [facility]
[2019-09-03 13:16] VITALS: BP 118/74
[2019-09-03] MEDS ORDERED: CLIN150C14 PO (13:16)
== END 2019-09-03 13:51 | disposition home or self-care (01) ==
LOC: ER 10:51
DX: L03.113 Cellulitis of right upper limb (principal)
CPT/HCPCS: 36415; 73130; 80053; 83605; 85025; 85651; 96365; 99285; J3490

== ENCOUNTER 2021-10-11 18:39 | Emergency (ER) | payer SELFPAY ==
[~2021-10-11] VITALS: Ht 170.2 cm; Wt 91.8 kg
[~2021-10-11 18:39] MED LIST changes: +CLIN150C16 PO
[2021-10-11 20:14] VITALS: BP 123/66
[2021-10-11 20:29] LABS: BILIRUBIN,URINE NEGATIVE (NEG); CLARITY,URINE CLEAR; COLOR,URINE YELLOW; NITRITE,URINE NEGATIVE (NEG); PH,URINE 6.5 (<5.0-8.0); PROTEIN,URINE NEGATIVE (NEG-TRACE)
[2021-10-11 20:35] LABS: BACTERIA,URINE 0 /HPF (0-FEW); RBC,URINE 0 /HPF (0-2); WBC,URINE 0 /HPF (0-4)
[2021-10-11 20:42] LABS: BASO # 0.1 x10^3/uL (0.0-0.2); BASO % 1 % (0-3); EOS # 0.3 x10^3/uL (0.0-0.7); EOS % 6 % (0-3); HEMATOCRIT 41.2 % (39.0-53.0); HEMOGLOBIN 14.1 g/dL (13.0-17.5); LYMPH # 2.6 x10^3/uL (1.0-4.8); LYMPH % 43 % (24-48); MEAN CORPUSCULAR HEMOGLOBIN 30 pg (25-35); MEAN CORPUSCULAR HGB CONC 34 g/dL (31-37); MEAN CORPUSCULAR VOLUME 87 fL (79-100); MONO # 0.6 x10^3/uL (0.0-1.1); MONO % 10 % (0-9); NEUT # 2.4 x10^3/uL (1.8-7.7); NEUT % 40 % (31-73); PLATELET COUNT 263 x10^3/uL (140-400); RED BLOOD COUNT 4.72 x10^6/uL (4.30-5.70); RED CELL DISTRIBUTION WIDTH 13.4 % (11.5-14.5); WHITE BLOOD COUNT 5.9 x10^3/uL (4.0-11.0)
[2021-10-11 20:49] LABS: CALCIUM 8.5 mg/dL (8.5-10.1); GFR 79.4; POTASSIUM 3.7 mmol/L (3.5-5.1)
[2021-10-11 20:55] LABS: ALBUMIN 3.8 g/dL (3.4-5.0); ALBUMIN/GLOBULIN RATIO 1.2 (1.0-1.7); TOTAL BILIRUBIN 0.2 mg/dL (0.2-1.0); TOTAL PROTEIN 6.9 g/dL (6.4-8.2)
--- NOTE | 2021-10-11 20:58 | RAD ---
PQRS Compliance Statement: One or more of the following individualized dose reduction techniques were utilized for this examinat ion: 1. Automated exposure control 2. Adjustment of the mA and/or kV according to patient size 3. Use of iterative reconstruction technique CT ABDOMEN+PELVIS WO Clinical Indication: Reason: flank pain / Spl. Instructions: / History: Comparison: None. Technique: Helical CT imaging of the abdomen and pelvis is performed without IV or oral contrast. Findings: Evaluation of solid organs and bowel is limited without oral and IV contrast, decreasing sensitivity for detection of pathology. The lung bases are clear. Cardiac size normal. The liver, gallbladder, spleen, pancreas, adrenal glands, and abdominal aorta are normal. There is no renal, ureteral, or bladder calculus. No perinephric stranding or hydronephrosis is ident ified. There is no obvious abnormality the stomach. There is no dilated small bowel. The appendix is normal. Scattered stool in the colon. There is no colon wall thickening. No abdominal adenopathy or free flu id. The urinary bladder is normal. Prostate and seminal vesicles are normal. There is no pelvic free flui d. Question small fat-containing left inguinal hernia. There is a hemangioma of the T10 vertebral body. No acute bone abnormality. IMPRESSION: No acute abdominal or pelvic abnormality. No obstructive uropathy. Electronically signed by: Hesham Sterling MD (10/11/2021 8:55 PM) [facility]
--- NOTE | 2021-10-11 21:17 | PHYS DOC ---
Past Medical History Past Medical History: Diabetes-Type II, High Cholesterol, Hyperthyroid Additional Past Medical Histor: Borderline DM (ESVIN MARTÍNEZ Fabienne [employer]) Past Surgical History: Other Additional Past Surgical Histo: RIGHT HAND (ESVIN MARTÍNEZ [employer]) Smoking Status: Never Smoker Alcohol Use: None Drug Use: None (ESVIN MARTÍNEZ [employer]) General Adult EDM: Chief Complaint: FLANK PAIN HPI: HPI: Patient is a 51 year old male with history of high cholesterol, diabetes type 2, who presents the ED today complaining of 8 out of 10 right flank pain, symptoms began 3 days ago. Patient denies any fever, nausea, vomiting, urgency frequency or dysuria. Patient states he contacted his PCP for an appointment but the earliest the head was Sunday. (ESVIN MARTÍNEZ [employer]) Review of Systems: Review of Systems: Constitutional: Denies fever or chills. [] Eyes: Denies change in visual acuity. [] HENT: Denies nasal congestion or sore throat. [] Respiratory: Denies cough or shortness of breath. [] Cardiovascular: Denies chest pain or edema. [] GI: Denies abdominal pain, nausea, vomiting, bloody stools or diarrhea. [] : Reports right flank pain. Denies dysuria. [] Musculoskeletal: Denies back pain or joint pain. [] Integument: Denies rash. [] Neurologic: Denies headache, focal weakness or sensory changes. [] [] Psychiatric: Denies depression or anxiety. [] (ESVIN MARTÍNEZ Fabienne [employer]) Heart Score: C/O Chest Pain: N/A Risk Factors: Risk Factors: DM, Current or recent (<one month) smoker, HTN, HLP, family history of CAD, obesity. Risk Scores: Score 0 - 3: 2.5% MACE over next 6 weeks - Discharge Home Score 4 - 6: 20.3% MACE over next 6 weeks - Admit for Clinical Observation Score 7 - 10: 72.7% MACE over next 6 weeks - Early Invasive Strategies (FRANCISCOErvinESVIN Fabienne [employer]) Allergies: Allergies: Allergies Coded Allergies Type Severity Reaction Last Updated Verified No Known Drug Allergies 08/30/19 No (FRANCISCOErvinESVIN Fabienne [employer]) Physical Exam: PE: Constitutional: Well developed, well nourished, no acute distress, non-toxic appearance. [] HENT: Normocephalic, atraumatic, bilateral external ears normal, oropharynx moist, no oral exudates, nose normal. [] Eyes: PERRLA, EOMI, conjunctiva normal, no discharge. [] Neck: Normal range of motion, no tenderness, supple, no stridor. [] Cardiovascular:Heart rate regular rhythm, no murmur [] Lungs & Thorax: Bilateral breath sounds clear to auscultation [] Abdomen: Bowel sounds normal, soft, no tenderness, no masses, no pulsatile masses. [] Skin: Warm, dry, no erythema, no rash. [] Back: No tenderness, no CVA tenderness. [] Extremities: No tenderness, no cyanosis, no clubbing, ROM intact, no edema. [] Neurologic: Alert and oriented X 3, normal motor function, normal sensory function, no focal deficits noted. [] Psychologic: Affect normal, judgement normal, mood normal. [] (ESVIN MARTÍNEZ APRN) Current Patient Data: Labs: Laboratory Tests Test 10/11/21 19:40 10/11/21 19:45 Urine Collection Type Unknown Urine Color Yellow Urine Clarity Clear Urine pH 6.5 (<5.0-8.0) Urine Specific [place] 1.020 (1.000-1.030) Urine Protein Negative mg/dL (NEG-TRACE) Urine Glucose (UA) Negative mg/dL (NEG) Urine Ketones (Stick) Negative mg/dL (NEG) Urine Blood Negative (NEG) Urine Nitrite Negative (NEG) Urine Bilirubin Negative (NEG) Urine Urobilinogen Dipstick 1.0 mg/dL (0.2 mg/dL) Urine Leukocyte Esterase Negative (NEG) Urine RBC 0 /HPF (0-2) Urine WBC 0 /HPF (0-4) Urine Bacteria 0 /HPF (0-FEW) White Blood Count 5.9 x10^3/uL (4.0-11.0) Red Blood Count 4.72 x10^6/uL (4.30-5.70) Hemoglobin 14.1 g/dL (13.0-17.5) Hematocrit 41.2 % (39.0-53.0) Mean Corpuscular Volume 87 fL (79-100) Mean Corpuscular Hemoglobin 30 pg (25-35) Mean Corpuscular Hemoglobin Concent 34 g/dL (31-37) Red Cell Distribution Width 13.4 % (11.5-14.5) Platelet Count 263 x10^3/uL (140-400) Neutrophils (%) (Auto) 40 % (31-73) Lymphocytes (%) (Auto) 43 % (24-48) Monocytes (%) (Auto) 10 % (0-9) H Eosinophils (%) (Auto) 6 % (0-3) H Basophils (%) (Auto) 1 % (0-3) Neutrophils # (Auto) 2.4 x10^3/uL (1.8-7.7) Lymphocytes # (Auto) 2.6 x10^3/uL (1.0-4.8) Monocytes # (Auto) 0.6 x10^3/uL (0.0-1.1) Eosinophils # (Auto) 0.3 x10^3/uL (0.0-0.7) Basophils # (Auto) 0.1 x10^3/uL (0.0-0.2) Sodium Level 140 mmol/L (136-145) Potassium Level 3.7 mmol/L (3.5-5.1) Chloride Level 104 mmol/L (98-107) Carbon Dioxide Level 29 mmol/L (21-32) Anion Gap 7 (6-14) Blood Urea Nitrogen 20 mg/dL (8-26) Creatinine 1.0 mg/dL (0.7-1.3) Estimated GFR (Cockcroft-Gault) 79.4 BUN/Creatinine Ratio 20 (6-20) Glucose Level 114 mg/dL (70-99) H Calcium Level 8.5 mg/dL (8.5-10.1) Total Bilirubin 0.2 mg/dL (0.2-1.0) Aspartate Amino Transferase (AST) 23 U/L (15-37) Alanine Aminotransferase (ALT) 44 U/L (16-63) Alkaline Phosphatase 59 U/L (46-116) Total Protein 6.9 g/dL (6.4-8.2) Albumin 3.8 g/dL (3.4-5.0) Albumin/Globulin Ratio 1.2 (1.0-1.7) Lipase 69 U/L (73-393) L Laboratory Tests 10/11/21 19:45 Laboratory Tests 10/11/21 19:45 Vital Signs: Vital Signs Date Time Temp Pulse Resp B/P (MAP) Pulse Ox O2 Delivery O2 Flow Rate FiO2 10/11/21 19:42 97.8 69 16 137/74 (95) 97 Room Air 97.8 (ESVIN MARTÍNEZ [employer]) EKG: EKG: [] (ESVIN MARTÍNEZ [employer]) Radiology/Procedures: Radiology/Procedures: []PROCEDURE: CT ABDOMEN PELVIS WO CONTRAST PQRS Compliance Statement: One or more of the following individualized dose reduction techniques were utilized for this examination: 1. Automated exposure control 2. Adjustment of the mA and/or kV according to patient size 3. Use of iterative reconstruction technique CT ABDOMEN+PELVIS WO Clinical Indication: Reason: flank pain / Spl. Instructions: / History: Comparison: None. Technique: Helical CT imaging of the abdomen and pelvis is performed without IV or oral contrast. Findings: Evaluation of solid organs and bowel is limited without oral and IV contrast, decreasing sensitivity for detection of pathology. The lung bases are clear. Cardiac size normal. The liver, gallbladder, spleen, pancreas, adrenal glands, and abdominal aorta are normal. There is no renal, ureteral, or bladder calculus. No perinephric stranding or hydronephrosis is identified. There is no obvious abnormality the stomach. There is no dilated small bowel. The appendix is normal. Scattered stool in the colon. There is no colon wall thickening. No abdominal adenopathy or free fluid. The urinary bladder is normal. Prostate and seminal vesicles are normal. There is no pelvic free fluid. Question small fat-containing left inguinal hernia. There is a hemangioma of the T10 vertebral body. No acute bone abnormality. IMPRESSION: No acute abdominal or pelvic abnormality. No obstructive uropathy. Electronically signed by: Hesham Sterling MD (10/11/2021 8:55 PM) [facility] DICTATED and SIGNED BY: HESHAM STERLING MD DATE: 10/11/[id number] 0 (TODDESVIN BOURNE Fabienne [employer]) Course & Med Decision Making: Course & Med Decision Making Pertinent Labs and Imaging studies reviewed. (See chart for details) This is a 51-year-old male patient presenting to the ED today complaining of right flank pain for 3 days. UA negative for infection, CBC CMP with no acute findings. CT of the abdomen and pelvic is negative for any acute findings. Discharged home. Follow-up with PCP on Sunday (ESVIN MARTÍNEZ APRN) Course & Med Decision Making Patients Care and treatment plan provided by ER Nurse Practitioner. I was available for consult. Patient's chart reviewed. (ROBERT MORAES DO) Valerie Disclaimer: Valerie Disclaimer: This electronic medical record was generated, in whole or in part, using a voice recognition dictation system. (ESVIN MARTÍNEZ APRN) Departure Departure Impression: Primary Impression: Acute flank pain Disposition: HOME / SELF CARE / HOMELESS Condition: STABLE Referrals: NO PCP (PCP) follow up in one week Patient Instructions: Flank Pain, [id number] Additional Instructions: You were evaluated in the emergency room, your lab work including urine was negative for any acute findings. We did a CT of your abdomen and pelvis which was negative for any acute findings. Please follow-up with your primary care doctor on Sunday. Scripts Gabapentin (GABAPENTIN ) 300 Mg Capsule 300 MG PO TID for NEUROGENIC PAIN, #21 CAP Prov: ESVIN MARTÍNEZ APRN 10/11/21 Naproxen (NAPROXEN) 375 Mg Tablet 1 TAB PO BID for pain, #10 TAB 0 Refills with food Prov: ESVIN MARTÍNEZ APRN 10/11/21 Cyclobenzaprine Hcl (CYCLOBENZAPRINE HCL) 10 Mg Tablet 1 TAB PO TID, #30 TAB Prov: ESVIN MARTÍNEZ APRN 10/11/21 ESVIN MARTÍNEZ APRN Oct 11, 2021 21:17 ROBERT MORAES DO Oct 12, 2021 03:46
[2021-10-11] MEDS ORDERED: NAPR-695 PO (21:23)
[2021-10-11] MEDS ORDERED: CYCL10TA19 PO (21:23)
[2021-10-11] MEDS ORDERED: GABA300C18 PO (21:23)
[2021-10-11] MEDS: KETOROLAC 30 MG/ML VIAL. IVP ONE (21:36)
== END 2021-10-11 22:16 | disposition home or self-care (01) ==
LOC: ER 18:39
DX: R10.9 Unspecified abdominal pain (principal); E11.9 Type 2 diabetes mellitus without complications; E78.00 Pure hypercholesterolemia, unspecified
CPT/HCPCS: 36415; 74176; 80053; 81001; 83690; 85025; 96374; 99284; J1885

== ENCOUNTER 2021-11-19 11:57 | Emergency (ER) | payer SELFPAY ==
[~2021-11-19] VITALS: Ht 172.7 cm; Wt 102.1 kg
[~2021-11-19 11:57] MED LIST changes: +CYCL10TA19 PO; +GABA300C18 PO; +NAPR-695 PO
--- NOTE | 2021-11-19 13:41 | PHYS DOC ---
Past Medical History Past Medical History: Diabetes-Type II, High Cholesterol, Hyperthyroid Additional Past Medical Histor: "prediabetes" Past Surgical History: Other Additional Past Surgical Histo: RIGHT HAND Smoking Status: Former Smoker Additional Information: quit smoking 20 years ago Alcohol Use: None Drug Use: None Adult General Chief Complaint Chief Complaint: SHORTNESS OF BREATH HPI HPI The patient is a 51-year-old male with a history of prediabetes and who is otherwise healthy. He is currently positive for COVID-19 and has had about 5 to 6 days of symptoms. Symptoms have included nasal congestion, rhinorrhea, dry cough, sore throat, fatigue, malaise and body aches. Earlier today he was having a lot of nasal congestion and felt like he could not get a good breath and because of it so elected emergency department evaluation. Upon initial evaluation here in the emergency department patient is alert and pleasantly appropriately interactive and in no acute distress. Vital signs including oxygenation are entirely appropriate here. He is not dyspneic and is speaking comfortably in full sentences in a normal tone of voice. Review of Systems Review of Systems A 12 point review of systems was completed and was negative except where noted in HPI above. Allergies Allergies Allergies Coded Allergies Type Severity Reaction Last Updated Verified No Known Drug Allergies 11/19/21 No Physical Exam Physical Exam Middle-aged male appearing nontoxic and in no acute distress. Head is normocephalic and atraumatic. Neck is supple and nontender. Oropharynx is moist. Lungs are clear to auscultation at all stations. There is a normal S1 and S2 without rubs or gallops and capillary refill is appropriate, less than 2 seconds globally. Abdomen is soft, nontender and nondistended. Skin is warm and dry without cyanosis, clubbing or edema. Psychiatrically, the patient demonstrates appropriate mood and affect and is alert. Evaluation of the extremities reveals BUEs and BLEs neurovascularly intact distally with strength 5 out of 5, sensation intact light touch in all nerve distributions, radial, DP and PT pulses 2+ equal bilaterally, capillary refill less than 2 seconds, hands and feet warm and well-perfused. No dependent peripheral edema distally. No calf tenderness swelling bilaterally. Homans test is negative bilaterally. Current Patient Data Vital Signs Vital Signs Date Time Temp Pulse Resp B/P (MAP) Pulse Ox O2 Delivery O2 Flow Rate FiO2 11/19/21 13:05 98.3 83 20 140/64 (89) 97 Room Air 98.3 EKG EKG [] Radiology/Procedures Radiology/Procedures [] Course & Med Decision Making Course & Med Decision Making 51-year-old gentleman presenting for evaluation of Covid symptoms. Vital signs and clinical examination are reassuring and are compatible with safe discharge home. Patient is advised to purchase a pulse oximeter to monitor his oxygen levels at home, and is instructed in the particulars of good supportive care. He is to follow-up with primary in the next 2 to 4 days and understands that if he feels worse instead of better or develops other new symptoms of concern that he will need to return to the emergency department immediately for reevaluation. All questions are answered. Dragon Disclaimer Dragon Disclaimer This electronic medical record was generated, in whole or in part, using a voice recognition dictation system. Departure Departure Impression: Primary Impression: COVID-19 Disposition: HOME / SELF CARE / HOMELESS Condition: GOOD Additional Instructions: Follow-up very closely with your primary care doctor in the office in the next 2 to 4 days for reevaluation of your symptoms and a discussion of next best steps in care. Drink plenty of fluids and get plenty of rest. You may try DayQuil and NyQuil as well as ibuprofen for symptoms. Purchase a pulse oximeter to monitor your oxygen levels at home as we discussed; they should be 92% or above consistently. Return to the emergency department right away for worsening symptoms of any kind or with any other new symptoms of concern. Definicin Se le realiz la prueba de deteccin del COVID-19 o se le diagnostic dicha enfermedad. Es ava infeccin ocasionada por un nuevo tipo de coronavirus. En la mayora de los casos, el COVID-19 provoca sntomas similares a los del resfriado. En algunas personas, puede ocasionar sntomas ms graves, miracle problemas respiratorios. No existe un tratamiento para el virus COVID-19. El cuerpo elimina la infeccin con el tiempo. El cuidado personal ayuda a aliviar el malestar. Pasos que debe seguir 1. Cuidados personales Descanse cuando sea necesario. Los hbitos saludables pueden ayudarlo a sentirse mejor. Algunas medidas para lograr cambios incluyen lo siguiente: - Elija alimentos saludables, miracle frutas y verduras. Johanna abundante cantidad de agua fátima todo el da. - Duerma myranda por la noche. - Si fuma, intente no hacerlo. Closter ayudar a mejorar la respiracin. - Evite el alcohol. 2. Mantenga sanos a los dems El virus puede contagiarse a otras personas. Cada vez que estornuda o tose, se liberan gotitas. Las gotitas pueden entrar en la boca, la nariz o los ojos de las personas que se encuentran cerca de usted y ocasionar la infeccin. Para reducir las probab ilidades de contagiar el virus COVID-19 a otros, tenga en cuenta lo siguiente: - Qudese en casa el tiempo que el mdico se lo indique. Es posible que deba quedarse en casa hasta que la enfermedad desaparezca. Salga nicamente para recibir atencin mdica o en vianey de urgencia. - Evite las reas pblicas, los eventos o el transporte pblico. No reanude las actividades laborales o escolares hasta que el mdico lo autorice. - Llame previamente si necesita asistir a un centro mdico. Avise que es posib le que haya contrado COVID-19. Closter ayudar a que le indiquen adonde debe dirigirse. Alejandro pueden pedirle que use ava mscara facial cuando vaya al consultorio. Si llama a los servicios de asistencia mdica de urgencias, avseles que es posible que haya contrado COVID-19. Mientras est en casa: - Evite el contacto directo con otras personas. Mantngase a ava distancia ap roximada de 2 metros. Si es posible, pasen la mayor parte del tiempo en gudino separadas. - Use ava mscara facial si estar en contacto directo con otras personas, por ejemplo, si compartir ava habitacin o un vehculo. - Pida a alguien que limpie las superficies comunes de la casa. Limpie picaportes, mesadas y lavamanos con limpiadores domsticos todos los barrera. - Al toser o estornudar, cbrase con un pauelo de papel. Despus de usarlo, deschelo de inmediato. Si no tiene un pauelo de papel, tosa o estornude en el pliegue del codo. - Lvese las kolton con frecuencia. Lvese las kolton despus de estornudar o toser. Lvese con agua y jabn fátima, al menos, 20 segundos. Si no dispone de agua y jabn, use un limpiador de kolton a base de alcohol. - No cocine para otros. Evite compartir objetos personales, miracle tenedores, cucharas o cepillos de dientes. - Mientras est enfermo, evite el contacto directo con las mascotas. No hay indicios de si el virus se transmite a las mascotas. Esta es ava medida de seguridad que debe tenerse en cuenta hasta que se sepa ms acerca de dorys virus. El aislamiento puede ser frustrante. La interaccin social puede ayudar. Mantngase en contacto con amigos y familiares por telfono u otros medios tecnolgicos. Puede interactuar con otras personas en el hogar, nitza mantenga ava distancia melara de aproximadamente 2 metros. Seguimiento Las pruebas para confirmar la presencia del COVID-19 pueden demorar algunos barrera. Es posible que deba seguir los pasos mencionados anteriormente hasta que estn los resultados de las pruebas. Lo llamarn del consultorio mdico para saber si kwong habido algn cambio en reilly torey. Tambin le avisarn cuando pueda volver a estar cerca de otras personas. Problemas a los que debe estar atento Comunquese con el mdico si no se recupera segn lo previsto o si tiene problemas miracle los siguientes: - Dificultad para respirar - Dolor de pecho - Empeoramiento de los sntomas Si ara que tiene ava urgencia, llame a los servicios de asistencia mdica de urgencias de inmediato. As taken from [facility] KATIE ESTES MD Nov 19, 2021 13:41
[2021-11-19] MEDS ORDERED: ACETAMINOPHEN 500 MG TABLET PO ONE (13:45)
[2021-11-19] MEDS ORDERED: PSEUDOEPHEDRINE 30 MG TABLET. PO ONE (13:45)
[2021-11-19] MEDS ORDERED: IBUPROFEN 400 MG TABLET. PO ONE (13:45)
[2021-11-19 13:56] VITALS: BP 115/55
== END 2021-11-19 14:01 | disposition home or self-care (01) ==
LOC: ER 11:57
DX: U07.1 COVID-19 (principal); E11.9 Type 2 diabetes mellitus without complications; E78.00 Pure hypercholesterolemia, unspecified; Z87.891 Personal history of nicotine dependence
CPT/HCPCS: 99284